=== PATIENT | male | born 1975 | race Two or more races ===

== ENCOUNTER 2017-10-06 20:00 | Emergency (ER) | payer BC ==
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
[2017-10-06] MEDS ORDERED: Iopamidol 755 Mg/ML 75 ML Bottle IV ONE (20:44)
[2017-10-06] MEDS ORDERED: Lactated Ringers 1,000 ML IV SCH (21:20)
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
== END 2017-10-06 21:55 ==
LOC: FB.ED 20:00
DX: S36.09XA Other injury of spleen, initial encounter (principal); S01.21XA Laceration without foreign body of nose, initial encounter; V29.9XXA Motorcycle rider (driver) (passenger) injured in unspecified traffic accident, initial encounter
CPT/HCPCS: 12011; 36415; 74177; 80048; 80305; 81001; 85025; 96360; 99285; J7120; Q9967

== ENCOUNTER 2017-10-13 12:48 | Inpatient (IN) | payer BC ==
[2017-10-13] MEDS ORDERED: Sodium Chloride 0.9% 1,000 ML IV SCH (13:00)
[2017-10-13] MEDS: Sodium Chloride 0.9% 1,000 ML IV SCH ×2 (13:03→14:04)
--- NOTE | 2017-10-13 13:15 | EDM.PDOC ---
ED HPI GENERAL MEDICAL PROBLEM - General Stated Complaint: STOMACH PAIN Time Seen by Provider: 10/13/17 13:11 Source of Information: Reports: Patient, EMS History Limitations: Reports: Other (pale, diaphoretic, weak. ) - History of Present Illness INITIAL COMMENTS - FREE TEXT/NARRATIVE: 42 y.o.w.m came by EMS due to severe abd. pain, pale and diaphoretic. As the ambulance arrived, his BP was 120/67. As the pt arrived here in the ED, he was pale, diaphoretic and in acute abd pain with distension of the abdomen-acute abdomen. BP was 70/54. 2 IVs were started and NS given wide open. Pt was seen by on 10/06/[address] due to [address]d. pain. CT abd showed an acute splenic rupture with active bleed. Pt was transferred to [facility] for immediate surgical consultation. As per patient, no surgical procedure was performed ayt that time. Pt was observed and sent home after a few days. Pt denied any trauma between 10/06/2017 and today. BP 70/56 Pulse 92 RR 18 Temp 36.7 Pulse ox 95% Onset Date: 10/11/17 Onset Time: 07:00 Duration: Day(s):, Getting Worse Location: Reports: Abdomen Quality: Reports: Dull, Pressure, Stabbing, Throbbing Severity: Severe Improves with: Reports: Rest Worsens with: Reports: Movement Context: Reports: Trauma Associated Symptoms: Reports: Diaphoresis, Weakness - Related Data Allergies Allergy/AdvReac Type Severity Reaction Status Date / Time No Known Allergies Allergy Verified 10/06/17 20:44 Home Meds: Home Meds NK [No Known Home Meds] 10/06/17 [History] Social & Family History - Family History Family Medical History: Noncontributory - Caffeine Use Caffeine Use: Reports: None ED ROS GENERAL - Review of Systems Review Of Systems: Unable To Obtain (due to excruciating abd. pain) ED EXAM, GI/ABD - Physical Exam Exam: See Below Exam Limited By: Other (abd. pain) General Appearance: Lethargic, Severe Distress Eyes: Bilateral: Normal Appearance Ears: Normal External Exam Nose: Normal Inspection Throat/Mouth: Normal Lips, Normal Voice, No Airway Compromise, Other (dry mucosal membrane) Head: Atraumatic, Normocephalic Neck: Normal Inspection, Supple, Non-Tender, Full Range of Motion Respiratory/Chest: No Respiratory Distress, Lungs Clear, Normal Breath Sounds, Chest Non-Tender Cardiovascular: Regular Rate, Rhythm, Other (low BP) GI/Abdominal Exam: Distended, Guarding, Rigid, Tender, Abnormal Bowel Sounds (Male) Exam: No Hernia Rectal (Males) Exam: Deferred Back Exam: Normal Inspection, Full Range of Motion Extremities: Normal Inspection, Normal Range of Motion, Non-Tender, No Pedal Edema, Slow Capillary Refill Neurological: Alert, Oriented, CN II-XII Intact, Other (unable to ambulate deu to ab.pain hypovolemic shock) Psychiatric: Anxious Skin Exam: Cool, Diaphoretic Lymphatic: No Adenopathy Course - Vital Signs Text/Narrative:: 42 y.o.w.m came by EMS due to severe abd. pain, pale and diaphoretic. As the ambulance arrived, his BP was 120/67. As the pt arrived here in the ED, he was pale, diaphoretic and in acute abd pain with distension of the abdomen-acute abdomen. BP was 70/54. 2 IVs were started and NS given wide open. Pt was seen by on 10/06/[address] due to abd. pain. CT abd showed an acute splenic rupture with active bleed. Pt was transferred to [facility] for immediate surgical consultation. As per patient, no surgical procedure was performed ayt that time. Pt was observed and sent home after a few days. Pt denied any trauma between 10/06/2017 and today. BP 70/56 Pulse 92 RR 18 Temp 36.7 Pulse ox 95% PE: Thin, pale diaphoretic male with abd. pain low BP, Ox3 Imaging:Splenic fracture with active bleed LabsL HGB 9.1 HCT 26.1 Lactic acid 3.7 Trop 0.017 WBC 18.1 13.11: 2 iv were started, NS was given wide open, BP improved, LABs in cluding T /S were ordered. 15: Pt went to Imaging Unit after Vitals improved. CT abd/pelvis showed fresh blood in his belly Consultation: Dr. Mckenzie, Surgeon: did not call back till , stating Dr. Whitt is taking calls for him till he, Dr. Purcell, is back in town 13.25: 2 units O neg blood was ordered verbally, 2 units of T/C were ordered later as well verbally, later in writing 13.30 Consultation: Drs. PIZANO/Jonathan, STEFANO/Intesivist/surgeon: Iv IV NS, hold off on O neg blood if possible, call life flight 13.40 Hispan wqs orederd, not given, however. 1st unit of O neg blood was started. 13.50 Consultation: Dr. Whitt, Surgeon: Will see the pt in the ed, decided to go to the OR for spenectomy 13.55 Consulting Radiolgy called back: Spleen Fracture with active bleed Plan: Splenectomy, Dr. Whitt, Surgeon, took the care over. BP was 85/56 as pt left the ER with NS and 2nd bad of O neg blood infusing, Nonrebreathers was applied, anesthesia was present. Family arrived and was informed about the Tx plan. Last Recorded V/S: Last Vital Signs Temp 35.8 C 10/13/17 18:00 Pulse 99 10/13/17 19:15 Resp 12 10/13/17 19:15 BP 122/82 10/13/17 19:15 Pulse Ox 100 10/13/17 19:15 - Orders/Labs/Meds Orders: Active Orders 24 hr Category Date Time Status Transfer Patient (Change bed) [ADT] Routine ADT 10/13/17 14:07 Ordered Abdomen Pelvis wo Cont [CT] Stat Exams 10/13/17 13:11 Taken FRESH FROZEN PLASMA [BBK] Routine Lab 10/13/17 14:37 Results PATIENT RETYPE [BBK] Stat Lab 10/13/17 13:02 Results PLATELETS APH [BBK] Routine Lab 10/13/17 14:37 Results RED BLOOD CELLS LP [BBK] Routine Lab 10/13/17 14:37 Results RED BLOOD CELLS LP [BBK] Stat Lab 10/13/17 13:02 Results TYPE AND SCREEN [BBK] Stat Lab 10/13/17 13:02 Results Sodium Chloride 0.9% [Normal Saline] 1,000 ml Med 10/13/17 13:30 Active IV .BOLUS Sodium Chloride 0.9% [Normal Saline] 1,000 ml Med 10/13/17 13:00 Active IV ASDIRECTED Sodium Chloride 0.9% [Normal Saline] 250 ml Med 10/13/17 13:30 Active IV ASDIRECTED Transfuse PRBC [Transfuse Red Blood Cells] [COMM] Stat Oth 10/13/17 13:18 Ordered Medication Orders Albuterol/Ipratropium (Duoneb 3.0-0.5 Mg/3 Ml) 3 ml NEB Q4H PRN PRN Reason: Shortness of Breath Hydromorphone HCl (Dilaudid) 1 mg IVPUSH Q2H PRN PRN Reason: Pain (moderate 4-6) Sodium Chloride (Normal Saline) 1,000 mls @ 125 mls/hr IV ASDIRECTED TWYLA Last Admin: 10/13/17 12:55 Dose: 125 mls/hr Sodium Chloride (Normal Saline) 1,000 mls @ 999 mls/hr IV .BOLUS TWYLA Last Admin: 10/13/17 13:03 Dose: 999 mls/hr Sodium Chloride (Normal Saline) 250 mls @ 100 mls/hr IV ASDIRECTED TWYLA Lactated Ringer's (Ringers, Lactated) 1,000 mls @ 125 mls/hr IV ASDIRECTED TWYLA Ondansetron HCl (Zofran) 4 mg IVPUSH Q6H PRN PRN Reason: Nausea/Vomiting Pantoprazole Sodium (Protonix Iv) 40 mg IVPUSH DAILY [facility] Last Admin: 10/13/17 18:34 Dose: 40 mg Labs: Laboratory Tests 10/13/17 10/13/17 10/13/17 Range/Units 13:02 13:02 13:02 WBC 18.1 H (4.5-12.0) X10-3/uL RBC 3.05 L (4.30-5.75) x10(6)uL Hgb 9.1 L D (11.5-15.5) g/dL Hct 26.5 L D (30.0-51.3) % MCV 87.1 (80-96) fL MCH 29.8 (27.7-33.6) pg MCHC 34.2 (32.2-35.4) g/dL RDW 12.4 (11.5-15.5) % Plt Count 231 (125-369) X10(3)uL MPV 8.8 (7.4-10.4) fL Add Manual Diff Yes Neutrophils % (Manual) 32 L (46-82) % Lymphocytes % (Manual) 58 H (13-37) % Monocytes % (Manual) 8 (4-12) % Eosinophils % (Manual) 2 (0-5) % PT 10.0 (8.7-11.1) INR 1.03 (0.89-1.13) Sodium 139 (135-145) mmol/L Potassium 3.6 (3.5-5.3) mmol/L Chloride 103 (100-110) mmol/L Carbon Dioxide 29 (21-32) mmol/L BUN 8 (7-18) mg/dL Creatinine 1.1 (0.70-1.30) mg/dL Est Cr Clr Drug Dosing TNP Estimated GFR (MDRD) > 60 (>60) BUN/Creatinine Ratio 7.3 L (9-20) Glucose 244 H D (80-116) mg/dL Lactic Acid (0.4-2.2) mmol/L Calcium 7.6 L (8.6-10.2) mg/dL Creatine Kinase 33 L (60-160) IU/L Troponin I (<0.017-0.056) ng/mL Blood Type Gel Antibody Screen Crossmatch 10/13/17 10/13/17 10/13/17 Range/Units 13:02 13:02 13:18 WBC (4.5-12.0) X10-3/uL RBC (4.30-5.75) x10(6)uL Hgb (11.5-15.5) g/dL Hct (30.0-51.3) % MCV (80-96) fL MCH (27.7-33.6) pg MCHC (32.2-35.4) g/dL RDW (11.5-15.5) % Plt Count (125-369) X10(3)uL MPV (7.4-10.4) fL Add Manual Diff Neutrophils % (Manual) (46-82) % Lymphocytes % (Manual) (13-37) % Monocytes % (Manual) (4-12) % Eosinophils % (Manual) (0-5) % PT (8.7-11.1) INR (0.89-1.13) Sodium (135-145) mmol/L Potassium (3.5-5.3) mmol/L Chloride (100-110) mmol/L Carbon Dioxide (21-32) mmol/L BUN (7-18) mg/dL Creatinine (0.70-1.30) mg/dL Est Cr Clr Drug Dosing Estimated GFR (MDRD) (>60) BUN/Creatinine Ratio (9-20) Glucose (80-116) mg/dL Lactic Acid 3.7 H (0.4-2.2) mmol/L Calcium (8.6-10.2) mg/dL Creatine Kinase (60-160) IU/L Troponin I < 0.017 L (<0.017-0.056) ng/mL Blood Type O POSITIVE Gel Antibody Screen Negative Crossmatch See Detail 10/13/17 10/13/17 Range/Units 14:37 15:30 WBC 21.8 H (4.5-12.0) X10-3/uL RBC 2.36 L (4.30-5.75) x10(6)uL Hgb 7.1 L (11.5-15.5) g/dL Hct 20.3 L* (30.0-51.3) % MCV 86.0 (80-96) fL MCH 30.0 (27.7-33.6) pg MCHC 34.9 (32.2-35.4) g/dL RDW 14.4 (11.5-15.5) % Plt Count 126 (125-369) X10(3)uL MPV 9.2 (7.4-10.4) fL Add Manual Diff Yes Neutrophils % (Manual) 88 H (46-82) % Lymphocytes % (Manual) 10 L (13-37) % Monocytes % (Manual) 2 L (4-12) % Eosinophils % (Manual) (0-5) % PT (8.7-11.1) INR (0.89-1.13) Sodium (135-145) mmol/L Potassium (3.5-5.3) mmol/L Chloride (100-110) mmol/L Carbon Dioxide (21-32) mmol/L BUN (7-18) mg/dL Creatinine (0.70-1.30) mg/dL Est Cr Clr Drug Dosing Estimated GFR (MDRD) (>60) BUN/Creatinine Ratio (9-20) Glucose (80-116) mg/dL Lactic Acid (0.4-2.2) mmol/L Calcium (8.6-10.2) mg/dL Creatine Kinase (60-160) IU/L Troponin I (<0.017-0.056) ng/mL Blood Type Gel Antibody Screen Crossmatch See Detail Meds: Medications Generic Name Dose Route Start Last Admin Trade Name Kendal PRN Reason Stop Dose Admin Albuterol/Ipratropium 3 ml 10/13/17 17:32 Duoneb 3.0-0.5 Mg/3 Ml NEB Q4H PRN Shortness of Breath Hydromorphone HCl 1 mg 10/13/17 16:29 Dilaudid IVPUSH Q2H PRN Pain (moderate 4-6) Sodium Chloride 1,000 mls @ 125 mls/hr 10/13/17 13:00 10/13/17 12:55 Normal Saline IV 125 mls/hr ASDIRECTED TWYLA Administration Sodium Chloride 1,000 mls @ 999 mls/hr 10/13/17 13:30 10/13/17 13:03 Normal Saline IV 999 mls/hr .BOLUS TWYLA Administration Sodium Chloride 250 mls @ 100 mls/hr 10/13/17 13:30 Normal Saline IV ASDIRECTED TWYLA Lactated Ringer's 1,000 mls @ 125 mls/hr 10/13/17 16:30 Ringers, Lactated IV ASDIRECTED TWYLA Ondansetron HCl 4 mg 10/13/17 16:29 Zofran IVPUSH Q6H PRN Nausea/Vomiting Pantoprazole Sodium 40 mg 10/13/17 16:45 10/13/17 18:34 Protonix Iv IVPUSH 40 mg DAILY TWYLA Administration Discontinued Medications Generic Name Dose Route Start Last Admin Trade Name Kendal PRN Reason Stop Dose Admin Fentanyl Confirm 10/13/17 13:32 10/13/17 19:08 Sublimaze Administered 10/13/17 13:33 Not Given Dose 100 mcg .ROUTE .STK-MED ONE Hetastarch/Sodium Chloride 500 mls @ 1,000 mls/hr 10/13/17 13:45 10/13/17 13: 37 Hetastarch 6% In Normal Saline IV 10/13/17 14:14 1,000 mls/hr STAT ONE Administration Departure - Departure Time of Disposition: 14:00 Disposition: Admitted As Inpatient 67 Condition: Fair Clinical Impression: Splenic rupture - Discharge Information - My Orders Last 24 Hours: My Active Orders 10/13/17 13:00 Sodium Chloride 0.9% [Normal Saline] 1,000 ml IV ASDIRECTED 10/13/17 13:02 PATIENT RETYPE [BBK] Stat RED BLOOD CELLS LP [BBK] Stat TYPE AND SCREEN [BBK] Stat 10/13/17 13:11 Abdomen Pelvis wo Cont [CT] Stat 10/13/17 13:18 Transfuse PRBC [Transfuse Red Blood Cells] [COMM] Stat 10/13/17 13:30 Sodium Chloride 0.9% [Normal Saline] 1,000 ml IV .BOLUS Sodium Chloride 0.9% [Normal Saline] 250 ml IV ASDIRECTED - Assessment/Plan Last 24 Hours: My Active Orders 10/13/17 13:00 Sodium Chloride 0.9% [Normal Saline] 1,000 ml IV ASDIRECTED 10/13/17 13:02 PATIENT RETYPE [BBK] Stat RED BLOOD CELLS LP [BBK] Stat TYPE AND SCREEN [BBK] Stat 10/13/17 13:11 Abdomen Pelvis wo Cont [CT] Stat 10/13/17 13:18 Transfuse PRBC [Transfuse Red Blood Cells] [COMM] Stat 10/13/17 13:30 Sodium Chloride 0.9% [Normal Saline] 1,000 ml IV .BOLUS Sodium Chloride 0.9% [Normal Saline] 250 ml IV ASDIRECTED
[2017-10-13] MEDS ORDERED: Hetastarch 6% in NS 500 ML Bag IV STA (13:28)
[2017-10-13] MEDS ORDERED: Sodium Chloride 0.9% 250 ML IV SCH (13:30)
[2017-10-13] MEDS ORDERED: fentaNYL 100 MCG/2 ML SDV ONE (13:32)
[2017-10-13] MEDS: fentaNYL 100 MCG/2 ML SDV IVPUSH PRN ×2 (13:33→13:35)
[2017-10-13] MEDS ORDERED: Hetastarch in NS 500 ML IV ONE (13:45)
[2017-10-13] MEDS ORDERED: Neostigmine Methylsulfate 10 MG/10 ML MDV IVPUSH ONE (14:30)
[2017-10-13] MEDS ORDERED: ePHEDrine 50 MG/ML SDV IV ONE (14:30)
[2017-10-13] MEDS ORDERED: Lactated Ringers 1,000 ML IV ONE (14:30)
[2017-10-13] MEDS ORDERED: Midazolam 1 MG/ML 2 ML SDV IV ONE (14:30)
[2017-10-13] MEDS ORDERED: HYDROmorphone 2 MG/ML SDV IV ONE (14:30)
[2017-10-13] MEDS ORDERED: fentaNYL 100 MCG/2 ML SDV IV ONE (14:30)
[2017-10-13] MEDS ORDERED: Propofol 200 MG/20 ML SDV IV ONE (14:30)
[2017-10-13] MEDS ORDERED: Ketamine 500 mg/10 ML MDV IV ONE (14:30)
[2017-10-13] MEDS ORDERED: Rocuronium 100 MG/10 ML MDV IV ONE (14:30)
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
[2017-10-13] MEDS ORDERED: Ondansetron 4 MG/2 ML SDV IVPUSH PRN (16:29)
--- NOTE | 2017-10-13 16:40 | PCM.OPNOTE ---
- General Post-Op/Procedure Note Date of Surgery/Procedure: 10/13/17 Operative Procedure(s): ex lap with splenectomy Findings: Stage III splenic laceration Pre Op Diagnosis: acute abdomen with splenic laceration Post-Op Diagnosis: Same Anesthesia Technique: General ET Tube Primary Surgeon: Eugenio Whitt Anesthesia Provider: Ambrose Causey Pathology: spleen EBL in mLs: 3,000 Complications: None Condition: Good Free Text/Narrative:: see dictation
[2017-10-13] MEDS ORDERED: Albuterol/Ipratropium 3.0-0.5 MG/3 ML Neb Soln NEB PRN (17:32)
[2017-10-13] MEDS: Sodium Chloride 0.9% 10 ML Syringe FLUSH PRN (18:00)
[2017-10-13] MEDS: Pantoprazole 40 MG Vial IVPUSH SCH (18:34)
[2017-10-13] MEDS: HYDROmorphone 2 MG/ML SDV IVPUSH PRN ×2 (19:46→21:47)
[2017-10-14] MEDS: HYDROmorphone 2 MG/ML SDV IVPUSH PRN ×7 (00:18→21:19)
[2017-10-14] MEDS: Lactated Ringers 1,000 ML IV SCH ×4 (01:12→17:34)
[2017-10-14] MEDS: Pantoprazole 40 MG Vial IVPUSH SCH (08:50)
[2017-10-14] MEDS ORDERED: LORazepam 2 MG/ML SDV IVPUSH PRN (09:02)
[2017-10-14] MEDS: Sodium Chloride 0.9% 10 ML Syringe FLUSH PRN ×2 (09:10→09:12)
--- NOTE | 2017-10-14 09:11 | PCM.SURGPN ---
- General Info Date of Service: 10/14/17 POD#: 1 Functional Status: Reports: Urinating, Incentive Spirometry - Review of Systems Gastrointestinal: Reports: Abdominal Pain. Denies: Flatus - Patient Data Vitals - Most Recent: Last Vital Signs Temp 37.3 C 10/14/17 08:00 Pulse 118 H 10/14/17 06:31 Resp 18 10/14/17 08:00 BP 120/72 10/14/17 08:00 Pulse Ox 99 10/14/17 08:00 Weight - Most Recent: 62.341 kg I&O - Last 24 Hours: Intake & Output 10/13/17 10/14/17 10/14/17 22:59 06:59 14:59 Intake Total 2346 1069 Output Total 446 380 Balance 8698 689 Lab Results Last 24 Hrs: Laboratory Results - last 24 hr 10/13/17 10/13/17 10/13/17 Range/Units 13:02 13:02 13:02 WBC 18.1 H (4.5-12.0) X10-3/uL RBC 3.05 L (4.30-5.75) x10(6)uL Hgb 9.1 L D (11.5-15.5) g/dL Hct 26.5 L D (30.0-51.3) % MCV 87.1 (80-96) fL MCH 29.8 (27.7-33.6) pg MCHC 34.2 (32.2-35.4) g/dL RDW 12.4 (11.5-15.5) % Plt Count 231 (125-369) X10(3)uL MPV 8.8 (7.4-10.4) fL Neut % (Auto) (46-82) % Lymph % (Auto) (13-37) % Arthur % (Auto) (4-12) % Eos % (Auto) (1.0-5.0) % Baso % (Auto) (0-2) % Neut # (Auto) (1.6-8.3) # Lymph # (Auto) (0.6-5.0) # Arthur # (Auto) (0.0-1.3) # Eos # (Auto) (0.0-0.8) # Baso # (Auto) (0.0-0.2) # Add Manual Diff Yes Neutrophils % (Manual) 32 L (46-82) % Band Neutrophils % (0-6) % Lymphocytes % (Manual) 58 H (13-37) % Monocytes % (Manual) 8 (4-12) % Eosinophils % (Manual) 2 (0-5) % PT 10.0 (8.7-11.1) INR 1.03 (0.89-1.13) Sodium 139 (135-145) mmol/L Potassium 3.6 (3.5-5.3) mmol/L Chloride 103 (100-110) mmol/L Carbon Dioxide 29 (21-32) mmol/L BUN 8 (7-18) mg/dL Creatinine 1.1 (0.70-1.30) mg/dL Est Cr Clr Drug Dosing TNP Estimated GFR (MDRD) > 60 (>60) BUN/Creatinine Ratio 7.3 L (9-20) Glucose 244 H D (80-116) mg/dL Lactic Acid (0.4-2.2) mmol/L Calcium 7.6 L (8.6-10.2) mg/dL Total Bilirubin (0.1-1.3) mg/dL AST (5-25) IU/L ALT (12-36) U/L Alkaline Phosphatase (56-112) IU/L Creatine Kinase 33 L (60-160) IU/L Troponin I (<0.017-0.056) ng/mL Total Protein (6.0-8.0) g/dL Albumin (3.5-5.2) g/dL Globulin g/dL Albumin/Globulin Ratio Blood Type Gel Antibody Screen Crossmatch 10/13/17 10/13/17 10/13/17 Range/Units 13:02 13:02 13:18 WBC (4.5-12.0) X10-3/uL RBC (4.30-5.75) x10(6)uL Hgb (11.5-15.5) g/dL Hct (30.0-51.3) % MCV (80-96) fL MCH (27.7-33.6) pg MCHC (32.2-35.4) g/dL RDW (11.5-15.5) % Plt Count (125-369) X10(3)uL MPV (7.4-10.4) fL Neut % (Auto) (46-82) % Lymph % (Auto) (13-37) % Arthur % (Auto) (4-12) % Eos % (Auto) (1.0-5.0) % Baso % (Auto) (0-2) % Neut # (Auto) (1.6-8.3) # Lymph # (Auto) (0.6-5.0) # Arthur # (Auto) (0.0-1.3) # Eos # (Auto) (0.0-0.8) # Baso # (Auto) (0.0-0.2) # Add Manual Diff Neutrophils % (Manual) (46-82) % Band Neutrophils % (0-6) % Lymphocytes % (Manual) (13-37) % Monocytes % (Manual) (4-12) % Eosinophils % (Manual) (0-5) % PT (8.7-11.1) INR (0.89-1.13) Sodium (135-145) mmol/L Potassium (3.5-5.3) mmol/L Chloride (100-110) mmol/L Carbon Dioxide (21-32) mmol/L BUN (7-18) mg/dL Creatinine (0.70-1.30) mg/dL Est Cr Clr Drug Dosing Estimated GFR (MDRD) (>60) BUN/Creatinine Ratio (9-20) Glucose (80-116) mg/dL Lactic Acid 3.7 H (0.4-2.2) mmol/L Calcium (8.6-10.2) mg/dL Total Bilirubin (0.1-1.3) mg/dL AST (5-25) IU/L ALT (12-36) U/L Alkaline Phosphatase (56-112) IU/L Creatine Kinase (60-160) IU/L Troponin I < 0.017 L (<0.017-0.056) ng/mL Total Protein (6.0-8.0) g/dL Albumin (3.5-5.2) g/dL Globulin g/dL Albumin/Globulin Ratio Blood Type O POSITIVE Gel Antibody Screen Negative Crossmatch See Detail 10/13/17 10/13/17 10/13/17 Range/Units 14:37 15:30 18:05 WBC 21.8 H 20.0 H (4.5-12.0) X10-3/uL RBC 2.36 L 2.85 L (4.30-5.75) x10(6)uL Hgb 7.1 L 8.2 L (11.5-15.5) g/dL Hct 20.3 L* 24.3 L (30.0-51.3) % MCV 86.0 85.3 (80-96) fL MCH 30.0 28.8 (27.7-33.6) pg MCHC 34.9 33.8 (32.2-35.4) g/dL RDW 14.4 14.0 (11.5-15.5) % Plt Count 126 298 (125-369) X10(3)uL MPV 9.2 8.0 (7.4-10.4) fL Neut % (Auto) 84.6 H (46-82) % Lymph % (Auto) 5.5 L (13-37) % Arthur % (Auto) 9.7 (4-12) % Eos % (Auto) 0 L (1.0-5.0) % Baso % (Auto) 0 (0-2) % Neut # (Auto) 17.0 H (1.6-8.3) # Lymph # (Auto) 1.1 (0.6-5.0) # Arthur # (Auto) 1.9 H (0.0-1.3) # Eos # (Auto) 0.0 (0.0-0.8) # Baso # (Auto) 0.0 (0.0-0.2) # Add Manual Diff Yes Neutrophils % (Manual) 88 H (46-82) % Band Neutrophils % (0-6) % Lymphocytes % (Manual) 10 L (13-37) % Monocytes % (Manual) 2 L (4-12) % Eosinophils % (Manual) (0-5) % PT (8.7-11.1) INR (0.89-1.13) Sodium (135-145) mmol/L Potassium (3.5-5.3) mmol/L Chloride (100-110) mmol/L Carbon Dioxide (21-32) mmol/L BUN (7-18) mg/dL Creatinine (0.70-1.30) mg/dL Est Cr Clr Drug Dosing Estimated GFR (MDRD) (>60) BUN/Creatinine Ratio (9-20) Glucose (80-116) mg/dL Lactic Acid (0.4-2.2) mmol/L Calcium (8.6-10.2) mg/dL Total Bilirubin (0.1-1.3) mg/dL AST (5-25) IU/L ALT (12-36) U/L Alkaline Phosphatase (56-112) IU/L Creatine Kinase (60-160) IU/L Troponin I (<0.017-0.056) ng/mL Total Protein (6.0-8.0) g/dL Albumin (3.5-5.2) g/dL Globulin g/dL Albumin/Globulin Ratio Blood Type Gel Antibody Screen Crossmatch See Detail 10/13/17 10/14/17 10/14/17 Range/Units 18:05 06:20 06:20 WBC 27.3 H (4.5-12.0) X10-3/uL RBC 3.17 L (4.30-5.75) x10(6)uL Hgb 9.3 L (11.5-15.5) g/dL Hct 27.5 L (30.0-51.3) % MCV 87.0 (80-96) fL MCH 29.4 (27.7-33.6) pg MCHC 33.8 (32.2-35.4) g/dL RDW 14.8 (11.5-15.5) % Plt Count 379 H (125-369) X10(3)uL MPV 8.2 (7.4-10.4) fL Neut % (Auto) (46-82) % Lymph % (Auto) (13-37) % Arthur % (Auto) (4-12) % Eos % (Auto) (1.0-5.0) % Baso % (Auto) (0-2) % Neut # (Auto) (1.6-8.3) # Lymph # (Auto) (0.6-5.0) # Arthur # (Auto) (0.0-1.3) # Eos # (Auto) (0.0-0.8) # Baso # (Auto) (0.0-0.2) # Add Manual Diff Yes Neutrophils % (Manual) 85 H (46-82) % Band Neutrophils % 1 (0-6) % Lymphocytes % (Manual) 7 L (13-37) % Monocytes % (Manual) 7 (4-12) % Eosinophils % (Manual) (0-5) % PT 10.4 (8.7-11.1) INR 1.07 (0.89-1.13) Sodium 142 (135-145) mmol/L Potassium 4.3 (3.5-5.3) mmol/L Chloride 108 D (100-110) mmol/L Carbon Dioxide 28 (21-32) mmol/L BUN 12 (7-18) mg/dL Creatinine 1.1 (0.70-1.30) mg/dL Est Cr Clr Drug Dosing 76.88 Estimated GFR (MDRD) > 60 (>60) BUN/Creatinine Ratio 10.9 (9-20) Glucose 130 H D (80-116) mg/dL Lactic Acid (0.4-2.2) mmol/L Calcium 7.1 L (8.6-10.2) mg/dL Total Bilirubin 1.1 (0.1-1.3) mg/dL AST 69 H (5-25) IU/L ALT 56 H D (12-36) U/L Alkaline Phosphatase 61 (56-112) IU/L Creatine Kinase (60-160) IU/L Troponin I (<0.017-0.056) ng/mL Total Protein 5.7 L (6.0-8.0) g/dL Albumin 2.4 L (3.5-5.2) g/dL Globulin 3.3 g/dL Albumin/Globulin Ratio 0.7 Blood Type Gel Antibody Screen Crossmatch Med Orders - Current: Current Medications Albuterol/Ipratropium (Duoneb 3.0-0.5 Mg/3 Ml) 3 ml NEB Q4H PRN PRN Reason: Shortness of Breath Fentanyl (Sublimaze) 50 mcg IVPUSH Q30M PRN PRN Reason: Pain Last Admin: 10/13/17 13:35 Dose: 50 mcg Hydromorphone HCl (Dilaudid) 1 mg IVPUSH Q2H PRN PRN Reason: Pain (moderate 4-6) Last Admin: 10/14/17 08:42 Dose: 1 mg Sodium Chloride (Normal Saline) 1,000 mls @ 125 mls/hr IV ASDIRECTED [facility] Last Admin: 10/13/17 12:55 Dose: 999 mls/hr Sodium Chloride (Normal Saline) 250 mls @ 100 mls/hr IV ASDIRECTED [facility] Lactated Ringer's (Ringers, Lactated) 1,000 mls @ 125 mls/hr IV ASDIRECTED [facility] Last Admin: 10/14/17 07:30 Dose: 125 mls/hr Acetaminophen 1,000 mg/ Premix 100 mls @ 400 mls/hr IV Q6H [facility] Stop: 10/15/17 09:01 Lorazepam (Ativan) 0.5 mg IVPUSH Q6H PRN PRN Reason: Anxiety Ondansetron HCl (Zofran) 4 mg IVPUSH Q6H PRN PRN Reason: Nausea/Vomiting Pantoprazole Sodium (Protonix Iv) 40 mg IVPUSH DAILY [facility] Last Admin: 10/14/17 08:50 Dose: 40 mg Sodium Chloride (Saline Flush) 10 ml FLUSH ASDIRECTED PRN PRN Reason: daily flush for saline locks Discontinued Medications Fentanyl (Sublimaze) Confirm Administered Dose 100 mcg .ROUTE .STK-MED ONE Stop: 10/13/17 13:33 Last Admin: 10/13/17 19:08 Dose: Not Given Sodium Chloride (Normal Saline) 1,000 mls @ 999 mls/hr IV .BOLUS [facility] Last Admin: 10/13/17 14:04 Dose: 999 mls/hr Hetastarch/Sodium Chloride (Hetastarch 6% In Normal Saline) 500 mls @ 1,000 mls /hr IV STAT ONE Stop: 10/13/17 14:14 Last Admin: 10/13/17 13:37 Dose: 1,000 mls/hr - Exam Wound/Incisions: Dressing Dry and Intact Quality Assessment: Urine Catheter, DVT Prophylaxis. No: Supplemental Oxygen General: Alert, Cooperative, No Acute Distress HEENT: Other (laceration on the nares of the nose ) Lungs: Clear to Auscultation, Normal Respiratory Effort Cardiovascular: Regular Rate, Regular Rhythm GI/Abdominal Exam: Normal Bowel Sounds, Tender (along incisionn ) Extremities: No Pedal Edema, Other (scd in place ) Skin: Warm, Dry, Intact - Problem List & Annotations (1) Traumatic rupture of spleen SNOMED Code(s): 27224254 Code(s): S36.09XA - OTHER INJURY OF SPLEEN, INITIAL ENCOUNTER Status: Acute Current Visit: No Qualifiers: Encounter type: sequela Qualified Code(s): S36.09XS - Other injury of spleen, sequela - Problem List Review Problem List Initiated/Reviewed/Updated: Yes - My Orders Last 24 Hours: Active Orders 24 hr Category Date Time Status Patient Status [ADT] Routine ADT 10/13/17 16:29 Active Transfer Patient (Change bed) [ADT] Routine ADT 10/13/17 14:07 Ordered Cardiac Monitoring [RC] 08,16,00 Care 10/13/17 16:29 Active Gastrointestinal Tube Mgmt [RC] 08,16,00 Care 10/13/17 16:29 Active Intake and Output [RC] 06,10,14,18,22,02 Care 10/13/17 16:31 Active Notify Provider Vital Signs [RC] PRN Care 10/13/17 16:32 Active Oxygen Therapy [RC] PRN Care 10/13/17 16:29 Active Pulse Oximetry [RC] CONTINUOUS Care 10/13/17 16:32 Active RT Aerosol Therapy [RC] .PRN Care 10/13/17 17:32 Active RT Incentive Spirometry [RC] Q2HWA Care 10/13/17 16:29 Active Vital Signs [RC] Q1HR Care 10/13/17 16:29 Active Respiratory Care Assess and Treatment [CONS] Urgent Cons 10/13/17 16:29 Active Nothing Per Oral Diet [DIET] Diet 10/13/17 Dinner Active Abdomen Pelvis wo Cont [CT] Stat Exams 10/13/17 13:11 Taken CXR [Chest 1V Frontal] [CR] Routine Exams 10/14/17 08:00 Taken FRESH FROZEN PLASMA [BBK] Routine Lab 10/13/17 14:37 Results PATIENT RETYPE [BBK] Stat Lab 10/13/17 13:02 Results PLATELETS APH [BBK] Routine Lab 10/13/17 14:37 Results RED BLOOD CELLS LP [BBK] Routine Lab 10/13/17 14:37 Results RED BLOOD CELLS LP [BBK] Stat Lab 10/13/17 13:02 Results TYPE AND SCREEN [BBK] Stat Lab 10/13/17 13:02 Results Acetaminophen [Ofirmev] 1,000 mg Med 10/14/17 09:00 Ordered Premix Bag 1 bag IV Q6H Albuterol/Ipratropium [DuoNeb 3.0-0.5 MG/3 ML] Med 10/13/17 17:32 Active 3 ml NEB Q4H PRN HYDROmorphone [Dilaudid] Med 10/13/17 16:29 Active 1 mg IVPUSH Q2H PRN LORazepam [Ativan] Med 10/14/17 09:02 Ordered 0.5 mg IVPUSH Q6H PRN Lactated Ringers [Ringers, Lactated] 1,000 ml Med 10/13/17 16:30 Active IV ASDIRECTED Ondansetron [Zofran] Med 10/13/17 16:29 Active 4 mg IVPUSH Q6H PRN Pantoprazole [ProTONIX IV] Med 10/13/17 16:45 Active 40 mg IVPUSH DAILY Sodium Chloride 0.9% [Normal Saline] 1,000 ml Med 10/13/17 13:00 Active IV ASDIRECTED Sodium Chloride 0.9% [Normal Saline] 250 ml Med 10/13/17 13:30 Active IV ASDIRECTED Sodium Chloride 0.9% [Saline Flush] Med 10/14/17 08:52 Active 10 ml FLUSH ASDIRECTED PRN fentaNYL [Sublimaze] Med 10/13/17 13:33 Active 50 mcg IVPUSH Q30M PRN SCD [Sequential Compression Device] [OM.PC] Routine Oth 10/13/17 17:32 Ordered Transfuse PRBC [Transfuse Red Blood Cells] [COMM] Stat Oth 10/13/17 13:18 Ordered Resuscitation Status Routine Resus Stat 10/13/17 16:29 Ordered Medication Orders Albuterol/Ipratropium (Duoneb 3.0-0.5 Mg/3 Ml) 3 ml NEB Q4H PRN PRN Reason: Shortness of Breath Fentanyl (Sublimaze) 50 mcg IVPUSH Q30M PRN PRN Reason: Pain Last Admin: 10/13/17 13:35 Dose: 50 mcg Admin: 10/13/17 13:33 Dose: 50 mcg Hydromorphone HCl (Dilaudid) 1 mg IVPUSH Q2H PRN PRN Reason: Pain (moderate 4-6) Last Admin: 10/14/17 08:42 Dose: 1 mg Admin: 10/14/17 06:13 Dose: 1 mg Admin: 10/14/17 03:26 Dose: 1 mg Admin: 10/14/17 00:18 Dose: 1 mg Admin: 10/13/17 21:47 Dose: 1 mg Admin: 10/13/17 19:46 Dose: 1 mg Sodium Chloride (Normal Saline) 1,000 mls @ 125 mls/hr IV ASDIRECTED [facility] Last Admin: 10/13/17 12:55 Dose: 999 mls/hr Sodium Chloride (Normal Saline) 250 mls @ 100 mls/hr IV ASDIRECTED [facility] Lactated Ringer's (Ringers, Lactated) 1,000 mls @ 125 mls/hr IV ASDIRECTED [facility] Last Admin: 10/14/17 07:30 Dose: 125 mls/hr Infusion: 10/14/17 07:30 Dose: 125 mls/hr Admin: 10/14/17 01:12 Dose: 125 mls/hr Acetaminophen 1,000 mg/ Premix 100 mls @ 400 mls/hr IV Q6H [facility] Stop: 10/15/17 09:01 Lorazepam (Ativan) 0.5 mg IVPUSH Q6H PRN PRN Reason: Anxiety Ondansetron HCl (Zofran) 4 mg IVPUSH Q6H PRN PRN Reason: Nausea/Vomiting Pantoprazole Sodium (Protonix Iv) 40 mg IVPUSH DAILY [facility] Last Admin: 10/14/17 08:50 Dose: 40 mg Admin: 10/13/17 18:34 Dose: 40 mg Sodium Chloride (Saline Flush) 10 ml FLUSH ASDIRECTED PRN PRN Reason: daily flush for saline locks - Assessment Assessment (Free Text/Narrative):: post op day #1 - Plan Plan (Free Text/Narrative):: will continue NGT and felder today. anticipate removal tomorrow. HGB if stable and is coming up no further need for transfusion. still with some tachycardia. this may have an anxiety as well as a stress component as well as some pain. I will add some ofrimev, and some low does ativan. continue current rx.
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
[2017-10-14] MEDS: Acetaminophen 1,000 MG in Premix Bag 1 BAG IV SCH ×3 (10:14→21:46)
[2017-10-15] MEDS: HYDROmorphone 2 MG/ML SDV IVPUSH PRN ×2 (01:41→05:54)
[2017-10-15] MEDS: Lactated Ringers 1,000 ML IV SCH (02:05)
[2017-10-15] MEDS: Acetaminophen 1,000 MG in Premix Bag 1 BAG IV SCH (03:30)
--- NOTE | 2017-10-15 07:17 | PCM.SURGPN ---
- General Info Date of Service: 10/15/17 POD#: 2 Functional Status: Reports: Ambulating, Urinating, Incentive Spirometry - Review of Systems Gastrointestinal: Denies: Flatus - Patient Data Vitals - Most Recent: Last Vital Signs Temp 37.1 C 10/15/17 06:00 Pulse 103 H 10/15/17 06:00 Resp 16 10/15/17 06:00 BP 119/77 10/15/17 06:00 Pulse Ox 93 L 10/15/17 06:00 Weight - Most Recent: 60.917 kg I&O - Last 24 Hours: Intake & Output 10/14/17 10/15/17 10/15/17 22:59 06:59 14:59 Intake Total 1230 1025 Output Total 850 600 Balance 380 425 Lab Results Last 24 Hrs: Laboratory Results - last 24 hr 10/15/17 10/15/17 Range/Units 06:15 06:15 WBC 26.9 H (4.5-12.0) X10-3/uL RBC 2.58 L (4.30-5.75) x10(6)uL Hgb 7.6 L (11.5-15.5) g/dL Hct 22.6 L (30.0-51.3) % MCV 87.4 (80-96) fL MCH 29.3 (27.7-33.6) pg MCHC 33.6 (32.2-35.4) g/dL RDW 14.0 (11.5-15.5) % Plt Count 403 H (125-369) X10(3)uL MPV 8.5 (7.4-10.4) fL Add Manual Diff Yes Neutrophils % (Manual) 80 (46-82) % Lymphocytes % (Manual) 16 (13-37) % Monocytes % (Manual) 3 L (4-12) % Eosinophils % (Manual) 1 (0-5) % Sodium 139 (135-145) mmol/L Potassium 3.7 (3.5-5.3) mmol/L Chloride 106 (100-110) mmol/L Carbon Dioxide 31 (21-32) mmol/L BUN 12 (7-18) mg/dL Creatinine 0.9 (0.70-1.30) mg/dL Est Cr Clr Drug Dosing 93.07 mL/min Estimated GFR (MDRD) > 60 (>60) BUN/Creatinine Ratio 13.3 (9-20) Glucose 107 (80-116) mg/dL Calcium 7.3 L (8.6-10.2) mg/dL Total Bilirubin 1.4 H (0.1-1.3) mg/dL AST 43 H D (5-25) IU/L ALT 46 H D (12-36) U/L Alkaline Phosphatase 60 (56-112) IU/L Total Protein 5.1 L (6.0-8.0) g/dL Albumin 1.9 L (3.5-5.2) g/dL Globulin 3.2 g/dL Albumin/Globulin Ratio 0.6 Amylase 107 (25-115) U/L Med Orders - Current: Current Medications Albuterol/Ipratropium (Duoneb 3.0-0.5 Mg/3 Ml) 3 ml NEB Q4H PRN PRN Reason: Shortness of Breath Fentanyl (Sublimaze) 50 mcg IVPUSH Q30M PRN PRN Reason: Pain Last Admin: 10/13/17 13:35 Dose: 50 mcg Hydromorphone HCl (Dilaudid) 1 mg IVPUSH Q2H PRN PRN Reason: Pain (moderate 4-6) Last Admin: 10/15/17 05:54 Dose: 1 mg Sodium Chloride (Normal Saline) 1,000 mls @ 125 mls/hr IV ASDIRECTED [facility] Last Admin: 10/13/17 12:55 Dose: 999 mls/hr Sodium Chloride (Normal Saline) 250 mls @ 100 mls/hr IV ASDIRECTED [facility] Lactated Ringer's (Ringers, Lactated) 1,000 mls @ 125 mls/hr IV ASDIRECTED [facility] Last Admin: 10/15/17 02:05 Dose: 125 mls/hr Acetaminophen 1,000 mg/ Premix 100 mls @ 400 mls/hr IV Q6H [facility] Stop: 10/15/17 09:01 Last Admin: 10/15/17 03:30 Dose: 400 mls/hr Lorazepam (Ativan) 0.5 mg IVPUSH Q6H PRN PRN Reason: Anxiety Ondansetron HCl (Zofran) 4 mg IVPUSH Q6H PRN PRN Reason: Nausea/Vomiting Pantoprazole Sodium (Protonix Iv) 40 mg IVPUSH DAILY [facility] Last Admin: 10/14/17 08:50 Dose: 40 mg Sodium Chloride (Saline Flush) 10 ml FLUSH ASDIRECTED PRN PRN Reason: daily flush for saline locks Last Admin: 10/14/17 09:12 Dose: 10 ml Discontinued Medications Fentanyl (Sublimaze) Confirm Administered Dose 100 mcg .ROUTE .STK-MED ONE Stop: 10/13/17 13:33 Last Admin: 10/13/17 19:08 Dose: Not Given Sodium Chloride (Normal Saline) 1,000 mls @ 999 mls/hr IV .BOLUS [facility] Last Admin: 10/13/17 14:04 Dose: 999 mls/hr Hetastarch/Sodium Chloride (Hetastarch 6% In Normal Saline) 500 mls @ 1,000 mls /hr IV STAT ONE Stop: 10/13/17 14:14 Last Admin: 10/13/17 13:37 Dose: 1,000 mls/hr - Exam Wound/Incisions: Dressing Dry and Intact General: Alert, Cooperative, No Acute Distress Lungs: Clear to Auscultation, Normal Respiratory Effort Cardiovascular: Regular Rate, Tachycardia GI/Abdominal Exam: Abnormal Bowel Sounds (hypotensive ) - Problem List & Annotations (1) Traumatic rupture of spleen SNOMED Code(s): 74977697 Code(s): S36.09XA - OTHER INJURY OF SPLEEN, INITIAL ENCOUNTER Status: Acute Current Visit: No Qualifiers: Encounter type: sequela Qualified Code(s): S36.09XS - Other injury of spleen, sequela - Problem List Review Problem List Initiated/Reviewed/Updated: Yes - My Orders Last 24 Hours: Active Orders 24 hr Category Date Time Status Up With Assistance [RC] ASDIRECTED Care 10/14/17 09:14 Active Up to Chair [RC] ASDIRECTED Care 10/14/17 09:14 Active CXR [Chest 1V Frontal] [CR] Routine Exams 10/14/17 08:00 Taken Acetaminophen [Ofirmev] 1,000 mg Med 10/14/17 09:00 Active Premix Bag 1 bag IV Q6H LORazepam [Ativan] Med 10/14/17 09:02 Active 0.5 mg IVPUSH Q6H PRN Sodium Chloride 0.9% [Saline Flush] Med 10/14/17 08:52 Active 10 ml FLUSH ASDIRECTED PRN Medication Orders Albuterol/Ipratropium (Duoneb 3.0-0.5 Mg/3 Ml) 3 ml NEB Q4H PRN PRN Reason: Shortness of Breath Fentanyl (Sublimaze) 50 mcg IVPUSH Q30M PRN PRN Reason: Pain Last Admin: 10/13/17 13:35 Dose: 50 mcg Admin: 10/13/17 13:33 Dose: 50 mcg Hydromorphone HCl (Dilaudid) 1 mg IVPUSH Q2H PRN PRN Reason: Pain (moderate 4-6) Last Admin: 10/15/17 05:54 Dose: 1 mg Admin: 10/15/17 01:41 Dose: 1 mg Admin: 10/14/17 21:19 Dose: 1 mg Admin: 10/14/17 19:11 Dose: 1 mg Admin: 10/14/17 13:09 Dose: 1 mg Admin: 10/14/17 08:42 Dose: 1 mg Admin: 10/14/17 06:13 Dose: 1 mg Admin: 10/14/17 03:26 Dose: 1 mg Admin: 10/14/17 00:18 Dose: 1 mg Admin: 10/13/17 21:47 Dose: 1 mg Admin: 10/13/17 19:46 Dose: 1 mg Sodium Chloride (Normal Saline) 1,000 mls @ 125 mls/hr IV ASDIRECTED [facility] Last Admin: 10/13/17 12:55 Dose: 999 mls/hr Sodium Chloride (Normal Saline) 250 mls @ 100 mls/hr IV ASDIRECTED [facility] Lactated Ringer's (Ringers, Lactated) 1,000 mls @ 125 mls/hr IV ASDIRECTED [facility] Last Admin: 10/15/17 02:05 Dose: 125 mls/hr Infusion: 10/15/17 01:34 Dose: 125 mls/hr Admin: 10/14/17 17:34 Dose: 125 mls/hr Infusion: 10/14/17 17:10 Dose: 125 mls/hr Admin: 10/14/17 09:10 Dose: 125 mls/hr Infusion: 10/14/17 09:10 Dose: 125 mls/hr Admin: 10/14/17 07:30 Dose: 125 mls/hr Infusion: 10/14/17 07:30 Dose: 125 mls/hr Admin: 10/14/17 01:12 Dose: 125 mls/hr Acetaminophen 1,000 mg/ Premix 100 mls @ 400 mls/hr IV Q6H [facility] Stop: 10/15/17 09:01 Last Admin: 10/15/17 03:30 Dose: 400 mls/hr Infusion: 10/14/17 22:01 Dose: 400 mls/hr Admin: 10/14/17 21:46 Dose: 400 mls/hr Infusion: 10/14/17 16:17 Dose: 400 mls/hr Admin: 10/14/17 16:02 Dose: 400 mls/hr Infusion: 10/14/17 10:29 Dose: 400 mls/hr Admin: 10/14/17 10:14 Dose: 400 mls/hr Lorazepam (Ativan) 0.5 mg IVPUSH Q6H PRN PRN Reason: Anxiety Ondansetron HCl (Zofran) 4 mg IVPUSH Q6H PRN PRN Reason: Nausea/Vomiting Pantoprazole Sodium (Protonix Iv) 40 mg IVPUSH DAILY [facility] Last Admin: 10/14/17 08:50 Dose: 40 mg Admin: 10/13/17 18:34 Dose: 40 mg Sodium Chloride (Saline Flush) 10 ml FLUSH ASDIRECTED PRN PRN Reason: daily flush for saline locks Last Admin: 10/14/17 09:12 Dose: 10 ml Admin: 10/14/17 09:10 Dose: 10 ml Admin: 10/13/17 18:00 Dose: 10 ml - Assessment Assessment (Free Text/Narrative):: elevated WBC noted no evidence of infection - Plan Plan (Free Text/Narrative):: D/C meerita D/C ARIE
[2017-10-15] MEDS ORDERED: HYDROmorphone/Normal Saline 15 MG/30 ML PCA IV SCH (07:30)
[2017-10-15] MEDS ORDERED: D5 1/2 NS w/ 20 mEq/L KCl 1,000 ML IV SCH (07:30)
[2017-10-15] MEDS: HYDROmorphone/Normal Saline 6 MG/30 ML PCA Vial IV SCH ×2 (09:04→23:41)
[2017-10-15] MEDS: D5 1/2 NS w/ 20 mEq/L KCl 1,000 ML IV SCH ×2 (10:41→18:14)
[2017-10-15] MEDS: Sodium Chloride 0.9% 10 ML Syringe FLUSH PRN (10:56)
[2017-10-15] MEDS: Pantoprazole 40 MG Vial IVPUSH SCH (10:56)
--- NOTE | 2017-10-15 12:38 | PCM.SN ---
- Free Text/Narrative Note: LATE ENTRY: On 10/13/17 Neostigmine 2mg IV given in PACU at 1507.
--- NOTE | 2017-10-15 13:38 | CR ---
INDICATION: Splenectomy. CHEST, SINGLE VIEW: FINDINGS: NG tube is present. The tip terminates in mid esophagus, and the side hole is in the proximal esophagus. Recommend advancing into the stomach, as well as correlation with current functioning. A small left-sided pleural effusion with some adjacent air space opacity. Right lung clear. IMPRESSION: 1. NG tube tip terminates mid esophagus, recommend advancing. 2. Small left pleural effusion with adjacent air space opacity. MTDD
[2017-10-16] MEDS ORDERED: Acetaminophen 650 MG Supp RECTAL ONE (01:54)
[2017-10-16] MEDS: D5 1/2 NS w/ 20 mEq/L KCl 1,000 ML IV SCH ×2 (02:41→11:02)
[2017-10-16] MEDS ORDERED: Bisacodyl 10 MG Supp RECTAL ONE (07:21)
--- NOTE | 2017-10-16 07:21 | PCM.SURGPN ---
- General Info Date of Service: 10/16/17 POD#: 3 Functional Status: Reports: Pain Controlled, Ambulating, Urinating, Incentive Spirometry - Review of Systems General: Reports: Fever (temp spike last pm ) Pulmonary: Reports: No Symptoms Cardiovascular: Reports: No Symptoms Gastrointestinal: Reports: Abdominal Pain. Denies: Flatus - Patient Data Vitals - Most Recent: Last Vital Signs Temp 37.2 C 10/16/17 04:00 Pulse 109 H 10/16/17 04:00 Resp 16 10/16/17 04:00 BP 125/72 10/16/17 04:00 Pulse Ox 99 10/16/17 04:00 Weight - Most Recent: 60.872 kg I&O - Last 24 Hours: Intake & Output 10/15/17 10/16/17 10/16/17 22:59 06:59 14:59 Intake Total 1058 1010 Output Total 875 700 Balance 183 310 Lab Results Last 24 Hrs: Laboratory Results - last 24 hr 10/13/17 Range/Units 14:37 Crossmatch See Detail Med Orders - Current: Current Medications Albuterol/Ipratropium (Duoneb 3.0-0.5 Mg/3 Ml) 3 ml NEB Q4H PRN PRN Reason: Shortness of Breath Hydromorphone HCl (Dilaudid [employer] 6 Mg In Ns 30 Ml) 6 mg IV ASDIRECTED [facility]; Protocol Last Admin: 10/15/17 23:41 Dose: 6 mg Potassium Chloride/Dextrose/Sod Cl (D5 1/2 Ns W/ 20 Meq/L Kcl) 1,000 mls @ 125 mls/hr IV Q8H [facility] Last Admin: 10/16/17 02:41 Dose: 125 mls/hr Lorazepam (Ativan) 0.5 mg IVPUSH Q6H PRN PRN Reason: Anxiety Ondansetron HCl (Zofran) 4 mg IVPUSH Q6H PRN PRN Reason: Nausea/Vomiting Pantoprazole Sodium (Protonix Iv) 40 mg IVPUSH DAILY [facility] Last Admin: 10/15/17 10:56 Dose: 40 mg Sodium Chloride (Saline Flush) 10 ml FLUSH ASDIRECTED PRN PRN Reason: daily flush for saline locks Last Admin: 10/15/17 10:56 Dose: 10 ml Discontinued Medications Acetaminophen (Tylenol) 650 mg RECTAL NOW ONE Stop: 10/16/17 01:55 Last Admin: 10/16/17 02:20 Dose: 650 mg Fentanyl (Sublimaze) Confirm Administered Dose 100 mcg .ROUTE .STK-MED ONE Stop: 10/13/17 13:33 Last Admin: 10/13/17 19:08 Dose: Not Given Fentanyl (Sublimaze) 50 mcg IVPUSH Q30M PRN PRN Reason: Pain Last Admin: 10/13/17 13:35 Dose: 50 mcg Hydromorphone HCl (Dilaudid) 1 mg IVPUSH Q2H PRN PRN Reason: Pain (moderate 4-6) Last Admin: 10/15/17 05:54 Dose: 1 mg Hydromorphone HCl (Dilaudid [employer] 15 Mg In Ns 30 Ml) 15 mg IV ASDIRECTED [facility]; Protocol Sodium Chloride (Normal Saline) 1,000 mls @ 125 mls/hr IV ASDIRECTED [facility] Last Admin: 10/13/17 12:55 Dose: 999 mls/hr Sodium Chloride (Normal Saline) 1,000 mls @ 999 mls/hr IV .BOLUS [facility] Last Admin: 10/13/17 14:04 Dose: 999 mls/hr Sodium Chloride (Normal Saline) 250 mls @ 100 mls/hr IV ASDIRECTED [facility] Hetastarch/Sodium Chloride (Hetastarch 6% In Normal Saline) 500 mls @ 1,000 mls /hr IV STAT ONE Stop: 10/13/17 14:14 Last Admin: 10/13/17 13:37 Dose: 1,000 mls/hr Lactated Ringer's (Ringers, Lactated) 1,000 mls @ 125 mls/hr IV ASDIRECTED [facility] Last Admin: 10/15/17 02:05 Dose: 125 mls/hr Acetaminophen 1,000 mg/ Premix 100 mls @ 400 mls/hr IV Q6H [facility] Stop: 10/15/17 09:01 Last Admin: 10/15/17 03:30 Dose: 400 mls/hr Potassium Chloride/Dextrose/Sod Cl (D5 1/2 Ns W/ 20 Meq/L Kcl) 1,000 mls @ 125 mls/hr IV ASDIRECTED [facility] - Exam Wound/Incisions: Dressing Dry and Intact General: Alert, Oriented, Cooperative, No Acute Distress Lungs: Clear to Auscultation, Decreased Breath Sounds (left side ) Cardiovascular: Regular Rate, Regular Rhythm GI/Abdominal Exam: Normal Bowel Sounds, No Abnormal Bruit, No Mass - Problem List & Annotations (1) Traumatic rupture of spleen SNOMED Code(s): 72401989 Code(s): S36.09XA - OTHER INJURY OF SPLEEN, INITIAL ENCOUNTER Status: Acute Current Visit: No Qualifiers: Encounter type: sequela Qualified Code(s): S36.09XS - Other injury of spleen, sequela - Problem List Review Problem List Initiated/Reviewed/Updated: Yes - My Orders Last 24 Hours: Active Orders 24 hr Category Date Time Status Transfer Patient (Change bed) [ADT] Routine ADT 10/15/17 10:45 Ordered Ambulate [RC] 04,08,12,16,20,00 Care 10/15/17 07:19 Active D5 1/2 NS w/ 20 mEq/L KCl 1,000 ml Med 10/15/17 10:45 Active IV Q8H HYDROmorphone/Normal Saline [Dilaudid [employer] 6 MG in NS 30 Med 10/15/17 08:45 Active ML] 6 mg IV ASDIRECTED NG [Nasogastric Orogastric Tube Removal] [OM.PC] Oth 10/15/17 07:17 Ordered Routine Medication Orders Albuterol/Ipratropium (Duoneb 3.0-0.5 Mg/3 Ml) 3 ml NEB Q4H PRN PRN Reason: Shortness of Breath Hydromorphone HCl (Dilaudid [employer] 6 Mg In Ns 30 Ml) 6 mg IV ASDIRECTED [facility]; Protocol Last Admin: 10/15/17 23:41 Dose: 6 mg Admin: 10/15/17 09:04 Dose: 6 mg Potassium Chloride/Dextrose/Sod Cl (D5 1/2 Ns W/ 20 Meq/L Kcl) 1,000 mls @ 125 mls/hr IV Q8H [facility] Last Admin: 10/16/17 02:41 Dose: 125 mls/hr Infusion: 10/16/17 02:14 Dose: 125 mls/hr Admin: 10/15/17 18:14 Dose: 125 mls/hr Infusion: 10/15/17 18:14 Dose: 125 mls/hr Admin: 10/15/17 10:41 Dose: 125 mls/hr Lorazepam (Ativan) 0.5 mg IVPUSH Q6H PRN PRN Reason: Anxiety Ondansetron HCl (Zofran) 4 mg IVPUSH Q6H PRN PRN Reason: Nausea/Vomiting Pantoprazole Sodium (Protonix Iv) 40 mg IVPUSH DAILY [facility] Last Admin: 10/15/17 10:56 Dose: 40 mg Admin: 10/14/17 08:50 Dose: 40 mg Admin: 10/13/17 18:34 Dose: 40 mg Sodium Chloride (Saline Flush) 10 ml FLUSH ASDIRECTED PRN PRN Reason: daily flush for saline locks Last Admin: 10/15/17 10:56 Dose: 10 ml Admin: 10/14/17 09:12 Dose: 10 ml Admin: 10/14/17 09:10 Dose: 10 ml Admin: 10/13/17 18:00 Dose: 10 ml - Assessment Assessment (Free Text/Narrative):: stable exam decreased breath sounds not unexpected due to splenectomy - Plan Plan (Free Text/Narrative):: suppository continue current rx
[2017-10-16] MEDS: Pantoprazole 40 MG Vial IVPUSH SCH (08:24)
[2017-10-16] MEDS ORDERED: Bacitracin/Neomycin/Polymyxin B Oint 28.4 GM Tube TOP SCH (11:15)
[2017-10-16] MEDS ORDERED: ceFAZolin 1 GM in Sodium Chloride 0.9% 50 ML IV SCH (12:00)
[2017-10-16] MEDS: ceFAZolin 1,000 MG VIAL IV SCH ×2 (12:06→20:16)
[2017-10-16] MEDS: Bacitracin/Neomycin/Polymyxin B Oint 28.4 GM Tube TOP SCH ×2 (12:11→20:16)
[2017-10-16] MEDS: HYDROmorphone/Normal Saline 6 MG/30 ML PCA Vial IV SCH (16:06)
[2017-10-16] MEDS ORDERED: Acetaminophen 325 MG Tab PO PRN (20:06)
[2017-10-17] MEDS: D5 1/2 NS w/ 20 mEq/L KCl 1,000 ML IV SCH ×2 (02:54→15:57)
[2017-10-17] MEDS: ceFAZolin 1,000 MG VIAL IV SCH ×3 (03:31→19:52)
[2017-10-17] MEDS ORDERED: Ketorolac 30 MG/ML SDV IVPUSH PRN (08:24)
--- NOTE | 2017-10-17 08:33 | PCM.SURGPN ---
- General Info Date of Service: 10/17/17 POD#: 4 Functional Status: Reports: Tolerating Diet, Ambulating - Review of Systems General: Reports: Fever Pulmonary: Reports: No Symptoms Cardiovascular: Reports: No Symptoms Gastrointestinal: Reports: Abdominal Pain, Flatus - Patient Data Vitals - Most Recent: Last Vital Signs Temp 36.8 C 10/17/17 03:58 Pulse 88 10/17/17 03:58 Resp 18 10/17/17 03:58 BP 111/76 10/17/17 03:58 Pulse Ox 96 10/17/17 03:58 Weight - Most Recent: 59.647 kg I&O - Last 24 Hours: Intake & Output 10/16/17 10/17/17 10/17/17 22:59 06:59 14:59 Intake Total 770 524 Output Total 900 2125 Balance -130 -1601 Lab Results Last 24 Hrs: Laboratory Results - last 24 hr 10/13/17 10/17/17 10/17/17 Range/Units 13:02 06:20 06:20 WBC 22.6 H (4.5-12.0) X10-3/uL Corrected WBC 22.2 H (4.5-12.0) X10(3) RBC 2.63 L (4.30-5.75) x10(6)uL Hgb 7.6 L (11.5-15.5) g/dL Hct 22.6 L (30.0-51.3) % MCV 85.9 (80-96) fL MCH 29.0 (27.7-33.6) pg MCHC 33.8 (32.2-35.4) g/dL RDW 13.7 (11.5-15.5) % Plt Count 631 H (125-369) X10(3)uL MPV 8.1 (7.4-10.4) fL Add Manual Diff Yes Neutrophils % (Manual) 68 (46-82) % Lymphocytes % (Manual) 19 (13-37) % Monocytes % (Manual) 11 (4-12) % Eosinophils % (Manual) 2 (0-5) % Nucleated RBCs 2 H (0-0) /100WBC Sodium 136 (135-145) mmol/L Potassium 3.7 (3.5-5.3) mmol/L Chloride 100 D (100-110) mmol/L Carbon Dioxide 30 (21-32) mmol/L BUN 7 (7-18) mg/dL Creatinine 0.8 (0.70-1.30) mg/dL Est Cr Clr Drug Dosing 102.52 mL/min Estimated GFR (MDRD) > 60 (>60) BUN/Creatinine Ratio 8.8 L (9-20) Glucose 125 H (80-116) mg/dL Calcium 7.6 L (8.6-10.2) mg/dL Crossmatch See Detail Med Orders - Current: Current Medications Acetaminophen (Tylenol) 650 mg PO Q4H PRN PRN Reason: Fever Last Admin: 10/16/17 23:24 Dose: 650 mg Hydrocodone Bitart/Acetaminophen ([place] 325-10 Mg) 1 tab PO Q4H PRN PRN Reason: Pain Albuterol/Ipratropium (Duoneb 3.0-0.5 Mg/3 Ml) 3 ml NEB Q4H PRN PRN Reason: Shortness of Breath Last Admin: 10/16/17 13:49 Dose: 3 ml Cefazolin Sodium (Ancef) 1,000 mg IV Q8H [facility] Last Admin: 10/17/17 03:31 Dose: 1,000 mg Ketorolac Tromethamine (Toradol) 30 mg IVPUSH Q6H PRN PRN Reason: Pain Stop: 10/22/17 08:24 Lorazepam (Ativan) 0.5 mg IVPUSH Q6H PRN PRN Reason: Anxiety Neomycin/Polymyxin/Bacitracin (Triple Antibiotic Oint) 1 gm TOP BID [facility] Last Admin: 10/16/17 20:16 Dose: 1 applic Ondansetron HCl (Zofran) 4 mg IVPUSH Q6H PRN PRN Reason: Nausea/Vomiting Pantoprazole Sodium (Protonix Iv) 40 mg IVPUSH DAILY [facility] Last Admin: 10/16/17 08:24 Dose: 40 mg Sodium Chloride (Saline Flush) 10 ml FLUSH ASDIRECTED PRN PRN Reason: daily flush for saline locks Last Admin: 10/15/17 10:56 Dose: 10 ml Discontinued Medications Acetaminophen (Tylenol) 650 mg RECTAL NOW ONE Stop: 10/16/17 01:55 Last Admin: 10/16/17 02:20 Dose: 650 mg Bisacodyl (Dulcolax) 10 mg RECTAL ONETIME ONE Stop: 10/16/17 07:22 Last Admin: 10/16/17 08:24 Dose: 10 mg Fentanyl (Sublimaze) Confirm Administered Dose 100 mcg .ROUTE .STK-MED ONE Stop: 10/13/17 13:33 Last Admin: 10/13/17 19:08 Dose: Not Given Fentanyl (Sublimaze) 50 mcg IVPUSH Q30M PRN PRN Reason: Pain Last Admin: 10/13/17 13:35 Dose: 50 mcg Hydromorphone HCl (Dilaudid) 1 mg IVPUSH Q2H PRN PRN Reason: Pain (moderate 4-6) Last Admin: 10/15/17 05:54 Dose: 1 mg Hydromorphone HCl (Dilaudid Import Dispatcher 15 Mg In Ns 30 Ml) 15 mg IV ASDIRECTED [facility]; Protocol Hydromorphone HCl (Dilaudid Import Dispatcher 6 Mg In Ns 30 Ml) 6 mg IV ASDIRECTED [facility]; Protocol Last Admin: 10/16/17 16:06 Dose: 6 mg Sodium Chloride (Normal Saline) 1,000 mls @ 125 mls/hr IV ASDIRECTED [facility] Last Admin: 10/13/17 12:55 Dose: 999 mls/hr Sodium Chloride (Normal Saline) 1,000 mls @ 999 mls/hr IV .BOLUS [facility] Last Admin: 10/13/17 14:04 Dose: 999 mls/hr Sodium Chloride (Normal Saline) 250 mls @ 100 mls/hr IV ASDIRECTED [facility] Hetastarch/Sodium Chloride (Hetastarch 6% In Normal Saline) 500 mls @ 1,000 mls /hr IV STAT ONE Stop: 10/13/17 14:14 Last Admin: 10/13/17 13:37 Dose: 1,000 mls/hr Lactated Ringer's (Ringers, Lactated) 1,000 mls @ 125 mls/hr IV ASDIRECTED [facility] Last Admin: 10/15/17 02:05 Dose: 125 mls/hr Acetaminophen 1,000 mg/ Premix 100 mls @ 400 mls/hr IV Q6H [facility] Stop: 10/15/17 09:01 Last Admin: 10/15/17 03:30 Dose: 400 mls/hr Potassium Chloride/Dextrose/Sod Cl (D5 1/2 Ns W/ 20 Meq/L Kcl) 1,000 mls @ 125 mls/hr IV ASDIRECTED [facility] Potassium Chloride/Dextrose/Sod Cl (D5 1/2 Ns W/ 20 Meq/L Kcl) 1,000 mls @ 50 mls/hr IV Q8H [facility] Last Admin: 10/17/17 02:54 Dose: 50 mls/hr Neomycin/Polymyxin/Bacitracin (Triple Antibiotic Oint) 1 gm TOP BID [facility] Last Admin: 10/16/17 12:11 Dose: Not Given - Exam Wound/Incisions: Dressing Dry and Intact Lungs: Clear to Auscultation, Decreased Breath Sounds (lll field ) Cardiovascular: Regular Rate, Regular Rhythm GI/Abdominal Exam: Normal Bowel Sounds Skin: Warm, Dry, Intact - Problem List & Annotations (1) Traumatic rupture of spleen SNOMED Code(s): 66229527 Code(s): S36.09XA - OTHER INJURY OF SPLEEN, INITIAL ENCOUNTER Status: Acute Current Visit: No Qualifiers: Encounter type: sequela Qualified Code(s): S36.09XS - Other injury of spleen, sequela - Problem List Review Problem List Initiated/Reviewed/Updated: Yes - My Orders Last 24 Hours: Active Orders 24 hr Category Date Time Status Clear Liquid Diet [DIET] Diet 10/16/17 Dinner Active CXR [Chest 2V] [CR] Routine Exams 10/17/17 08:23 Ordered UA W/MICROSCOPIC [URIN] Routine Lab 10/17/17 08:23 Ordered Acetaminophen [Tylenol] Med 10/16/17 20:06 Active 650 mg PO Q4H PRN Acetaminophen/HYDROcodone [[place] 325-10 MG] Med 10/17/17 08:24 Ordered 1 tab PO Q4H PRN Bacitracin/Neomycin/Polymyxin [Triple Antibiotic Oint] Med 10/16/17 11:34 Active 1 gm TOP BID Ketorolac [Toradol] Med 10/17/17 08:24 Ordered 30 mg IVPUSH Q6H PRN ceFAZolin [Ancef] Med 10/16/17 12:00 Active 1,000 mg IV Q8H Convert IV to Saline Lock [OM.PC] Routine Oth 10/17/17 08:23 Ordered Medication Orders Acetaminophen (Tylenol) 650 mg PO Q4H PRN PRN Reason: Fever Last Admin: 10/16/17 23:24 Dose: 650 mg Hydrocodone Bitart/Acetaminophen ([place] 325-10 Mg) 1 tab PO Q4H PRN PRN Reason: Pain Albuterol/Ipratropium (Duoneb 3.0-0.5 Mg/3 Ml) 3 ml NEB Q4H PRN PRN Reason: Shortness of Breath Last Admin: 10/16/17 13:49 Dose: 3 ml Cefazolin Sodium (Ancef) 1,000 mg IV Q8H [facility] Last Admin: 10/17/17 03:31 Dose: 1,000 mg Admin: 10/16/17 20:16 Dose: 1,000 mg Admin: 10/16/17 12:06 Dose: 1,000 mg Ketorolac Tromethamine (Toradol) 30 mg IVPUSH Q6H PRN PRN Reason: Pain Stop: 10/22/17 08:24 Lorazepam (Ativan) 0.5 mg IVPUSH Q6H PRN PRN Reason: Anxiety Neomycin/Polymyxin/Bacitracin (Triple Antibiotic Oint) 1 gm TOP BID [facility] Last Admin: 10/16/17 20:16 Dose: 1 applic Admin: 10/16/17 12:11 Dose: 1 applic Ondansetron HCl (Zofran) 4 mg IVPUSH Q6H PRN PRN Reason: Nausea/Vomiting Pantoprazole Sodium (Protonix Iv) 40 mg IVPUSH DAILY [facility] Last Admin: 10/16/17 08:24 Dose: 40 mg Admin: 10/15/17 10:56 Dose: 40 mg Admin: 10/14/17 08:50 Dose: 40 mg Admin: 10/13/17 18:34 Dose: 40 mg Sodium Chloride (Saline Flush) 10 ml FLUSH ASDIRECTED PRN PRN Reason: daily flush for saline locks Last Admin: 10/15/17 10:56 Dose: 10 ml Admin: 10/14/17 09:12 Dose: 10 ml Admin: 10/14/17 09:10 Dose: 10 ml Admin: 10/13/17 18:00 Dose: 10 ml - Assessment Assessment (Free Text/Narrative):: no obvious source of fever will get cxr UA - Plan Plan (Free Text/Narrative):: nebs to scheduled. saline lock iv
[2017-10-17] MEDS: Pantoprazole 40 MG Vial IVPUSH SCH (09:56)
[2017-10-17] MEDS: Albuterol/Ipratropium 3.0-0.5 MG/3 ML Neb Soln NEB SCH ×4 (09:57→20:17)
[2017-10-17] MEDS: Bacitracin/Neomycin/Polymyxin B Oint 28.4 GM Tube TOP SCH ×2 (09:57→22:54)
[2017-10-17] MEDS: Sodium Chloride 0.9% 10 ML Syringe FLUSH PRN ×3 (10:33→19:53)
--- NOTE | 2017-10-17 10:46 | PCM.SN ---
- Free Text/Narrative Note: CXR demonstrates continued effusion on the left. will continue pulmonary toilet as well as nebs which have been changed to a scheduled approach.
[2017-10-17] MEDS ORDERED: Bisacodyl 10 MG Supp RECTAL ONE (15:36)
[2017-10-17] MEDS: Acetaminophen/HYDROcodone 325-10 MG Tab PO PRN (16:02)
[2017-10-17] MEDS: Metoclopramide 10 MG Tab PO SCH (17:31)
[2017-10-18] MEDS: Albuterol/Ipratropium 3.0-0.5 MG/3 ML Neb Soln NEB SCH ×3 (00:38→08:31)
[2017-10-18] MEDS: ceFAZolin 1,000 MG VIAL IV SCH (04:08)
[2017-10-18] MEDS: Sodium Chloride 0.9% 10 ML Syringe FLUSH PRN ×2 (04:08→08:25)
[2017-10-18] MEDS: Acetaminophen/HYDROcodone 325-10 MG Tab PO PRN (04:57)
[2017-10-18] MEDS: Pantoprazole 40 MG Vial IVPUSH SCH (08:26)
[2017-10-18] MEDS: Bacitracin/Neomycin/Polymyxin B Oint 28.4 GM Tube TOP SCH (08:30)
[2017-10-18] MEDS: Metoclopramide 10 MG Tab PO SCH ×2 (08:35→11:58)
--- NOTE | 2017-10-18 09:20 | PCM.SURGPN ---
- General Info Date of Service: 10/18/17 POD#: 5 Functional Status: Reports: Pain Controlled, Tolerating Diet, Ambulating, Incentive Spirometry - Patient Data Vitals - Most Recent: Last Vital Signs Temp 37.7 C 10/18/17 04:00 Pulse 112 H 10/18/17 09:03 Resp 18 10/18/17 04:00 BP 124/77 10/18/17 04:00 Pulse Ox 97 10/18/17 09:03 Weight - Most Recent: 59.647 kg I&O - Last 24 Hours: Intake & Output 10/17/17 10/18/17 10/18/17 22:59 06:59 14:59 Intake Total 400 300 Output Total 200 500 Balance 200 -200 Lab Results Last 24 Hrs: Laboratory Results - last 24 hr 10/17/17 Range/Units 09:50 Urine Color Yellow (YELLOW) Urine Appearance Clear (CLEAR) Urine pH 7.0 H (5.0-6.5) Ur Specific [place] 1.010 (1.010-1.025) Urine Protein Negative (NEGATIVE) mg/dL Urine Glucose (UA) Normal (NEGATIVE) mg/dL Urine Ketones Negative (NEGATIVE) mg/dL Urine Occult Blood Negative (NEGATIVE) Urine Nitrite Negative (NEGATIVE) Urine Bilirubin Small H (NEGATIVE) Urine Urobilinogen 4 H (NEGATIVE) mg/dL Ur Leukocyte Esterase Negative (NEGATIVE) Urine RBC 0-5 (0) Urine WBC 0-5 (0) Ur Squamous Epith Cells Rare (NS,R,O) Urine Bacteria Rare H (NS) Urine Mucus Few H (NS) Med Orders - Current: Current Medications Acetaminophen (Tylenol) 650 mg PO Q4H PRN PRN Reason: Fever Last Admin: 10/16/17 23:24 Dose: 650 mg Hydrocodone Bitart/Acetaminophen ([place] 325-10 Mg) 1 tab PO Q4H PRN PRN Reason: Pain Last Admin: 10/18/17 04:57 Dose: 1 tab Albuterol/Ipratropium (Duoneb 3.0-0.5 Mg/3 Ml) 3 ml NEB Q4H [facility] Last Admin: 10/18/17 08:31 Dose: 3 ml Cefazolin Sodium (Ancef) 1,000 mg IV Q8H [facility] Last Admin: 10/18/17 04:08 Dose: 1,000 mg Ketorolac Tromethamine (Toradol) 30 mg IVPUSH Q6H PRN PRN Reason: Pain Stop: 10/22/17 08:24 Last Admin: 10/17/17 10:30 Dose: 30 mg Lorazepam (Ativan) 0.5 mg IVPUSH Q6H PRN PRN Reason: Anxiety Metoclopramide HCl (Reglan) 10 mg PO TIDAC [facility] Last Admin: 10/18/17 08:35 Dose: 10 mg Neomycin/Polymyxin/Bacitracin (Triple Antibiotic Oint) 1 gm TOP BID [facility] Last Admin: 10/18/17 08:30 Dose: 1 applic Ondansetron HCl (Zofran) 4 mg IVPUSH Q6H PRN PRN Reason: Nausea/Vomiting Pantoprazole Sodium (Protonix Iv) 40 mg IVPUSH DAILY [facility] Last Admin: 10/18/17 08:26 Dose: 40 mg Sodium Chloride (Saline Flush) 10 ml FLUSH ASDIRECTED PRN PRN Reason: daily flush for saline locks Last Admin: 10/18/17 08:25 Dose: 10 ml Discontinued Medications Acetaminophen (Tylenol) 650 mg RECTAL NOW ONE Stop: 10/16/17 01:55 Last Admin: 10/16/17 02:20 Dose: 650 mg Albuterol/Ipratropium (Duoneb 3.0-0.5 Mg/3 Ml) 3 ml NEB Q4H PRN PRN Reason: Shortness of Breath Last Admin: 10/16/17 13:49 Dose: 3 ml Bisacodyl (Dulcolax) 10 mg RECTAL ONETIME ONE Stop: 10/16/17 07:22 Last Admin: 10/16/17 08:24 Dose: 10 mg Bisacodyl (Dulcolax) 10 mg RECTAL ONETIME ONE Stop: 10/17/17 15:37 Last Admin: 10/17/17 15:56 Dose: 10 mg Fentanyl (Sublimaze) Confirm Administered Dose 100 mcg .ROUTE .STK-MED ONE Stop: 10/13/17 13:33 Last Admin: 10/13/17 19:08 Dose: Not Given Fentanyl (Sublimaze) 50 mcg IVPUSH Q30M PRN PRN Reason: Pain Last Admin: 10/13/17 13:35 Dose: 50 mcg Hydromorphone HCl (Dilaudid) 1 mg IVPUSH Q2H PRN PRN Reason: Pain (moderate 4-6) Last Admin: 10/15/17 05:54 Dose: 1 mg Hydromorphone HCl (Dilaudid Java Engineer 15 Mg In Ns 30 Ml) 15 mg IV ASDIRECTED [facility]; Protocol Hydromorphone HCl (Dilaudid Java Engineer 6 Mg In Ns 30 Ml) 6 mg IV ASDIRECTED [facility]; Protocol Last Admin: 10/16/17 16:06 Dose: 6 mg Sodium Chloride (Normal Saline) 1,000 mls @ 125 mls/hr IV ASDIRECTED [facility] Last Admin: 10/13/17 12:55 Dose: 999 mls/hr Sodium Chloride (Normal Saline) 1,000 mls @ 999 mls/hr IV .BOLUS [facility] Last Admin: 10/13/17 14:04 Dose: 999 mls/hr Sodium Chloride (Normal Saline) 250 mls @ 100 mls/hr IV ASDIRECTED [facility] Hetastarch/Sodium Chloride ([place] 6% In Normal Saline) 500 mls @ 1,000 mls /hr IV STAT ONE Stop: 10/13/17 14:14 Last Admin: 10/13/17 13:37 Dose: 1,000 mls/hr Lactated Ringer's (Ringers, Lactated) 1,000 mls @ 125 mls/hr IV ASDIRECTED [facility] Last Admin: 10/15/17 02:05 Dose: 125 mls/hr Acetaminophen 1,000 mg/ Premix 100 mls @ 400 mls/hr IV Q6H [facility] Stop: 10/15/17 09:01 Last Admin: 10/15/17 03:30 Dose: 400 mls/hr Potassium Chloride/Dextrose/Sod Cl (D5 1/2 Ns W/ 20 Meq/L Kcl) 1,000 mls @ 125 mls/hr IV ASDIRECTED [facility] Potassium Chloride/Dextrose/Sod Cl (D5 1/2 Ns W/ 20 Meq/L Kcl) 1,000 mls @ 50 mls/hr IV Q8H [facility] Last Admin: 10/17/17 15:57 Dose: Not Given Neomycin/Polymyxin/Bacitracin (Triple Antibiotic Oint) 1 gm TOP BID [facility] Last Admin: 10/16/17 12:11 Dose: Not Given - Exam Wound/Incisions: Healing Well Lungs: Clear to Auscultation, Normal Respiratory Effort Cardiovascular: Regular Rate, Regular Rhythm GI/Abdominal Exam: Normal Bowel Sounds, Soft, Non-Tender Skin: Warm, Dry, Intact - Problem List & Annotations (1) Traumatic rupture of spleen SNOMED Code(s): 63430539 Code(s): S36.09XA - OTHER INJURY OF SPLEEN, INITIAL ENCOUNTER Status: Acute Current Visit: No Qualifiers: Encounter type: sequela Qualified Code(s): S36.09XS - Other injury of spleen, sequela - Problem List Review Problem List Initiated/Reviewed/Updated: Yes - My Orders Last 24 Hours: Active Orders 24 hr Category Date Time Status Regular Diet [DIET] Diet 10/17/17 Lunch Active CXR [Chest 2V] [CR] Routine Exams 10/17/17 08:23 Taken UA W/MICROSCOPIC [URIN] Routine Lab 10/17/17 09:50 Ordered Acetaminophen/HYDROcodone [[place] 325-10 MG] Med 10/17/17 08:24 Active 1 tab PO Q4H PRN Albuterol/Ipratropium [DuoNeb 3.0-0.5 MG/3 ML] Med 10/17/17 09:00 Active 3 ml NEB Q4H Ketorolac [Toradol] Med 10/17/17 08:24 Active 30 mg IVPUSH Q6H PRN Metoclopramide [Reglan] Med 10/17/17 17:30 Active 10 mg PO TIDAC Convert IV to Saline Lock [OM.PC] Routine Oth 10/17/17 08:23 Ordered Medication Orders Acetaminophen (Tylenol) 650 mg PO Q4H PRN PRN Reason: Fever Last Admin: 10/16/17 23:24 Dose: 650 mg Hydrocodone Bitart/Acetaminophen ([place] 325-10 Mg) 1 tab PO Q4H PRN PRN Reason: Pain Last Admin: 10/18/17 04:57 Dose: 1 tab Admin: 10/17/17 16:02 Dose: 1 tab Albuterol/Ipratropium (Duoneb 3.0-0.5 Mg/3 Ml) 3 ml NEB Q4H [facility] Last Admin: 10/18/17 08:31 Dose: 3 ml Admin: 10/18/17 04:53 Dose: 3 ml Admin: 10/18/17 00:38 Dose: 3 ml Admin: 10/17/17 20:17 Dose: 3 ml Admin: 10/17/17 17:31 Dose: 3 ml Admin: 10/17/17 12:46 Dose: 3 ml Admin: 10/17/17 09:57 Dose: 3 ml Cefazolin Sodium (Ancef) 1,000 mg IV Q8H [facility] Last Admin: 10/18/17 04:08 Dose: 1,000 mg Admin: 10/17/17 19:52 Dose: 1,000 mg Admin: 10/17/17 12:46 Dose: 1,000 mg Admin: 10/17/17 03:31 Dose: 1,000 mg Admin: 10/16/17 20:16 Dose: 1,000 mg Admin: 10/16/17 12:06 Dose: 1,000 mg Ketorolac Tromethamine (Toradol) 30 mg IVPUSH Q6H PRN PRN Reason: Pain Stop: 10/22/17 08:24 Last Admin: 10/17/17 10:30 Dose: 30 mg Lorazepam (Ativan) 0.5 mg IVPUSH Q6H PRN PRN Reason: Anxiety Metoclopramide HCl (Reglan) 10 mg PO TIDAC [facility] Last Admin: 10/18/17 08:35 Dose: 10 mg Admin: 10/17/17 17:31 Dose: 10 mg Neomycin/Polymyxin/Bacitracin (Triple Antibiotic Oint) 1 gm TOP BID [facility] Last Admin: 10/18/17 08:30 Dose: 1 applic Admin: 10/17/17 22:54 Dose: 1 applic Admin: 10/17/17 09:57 Dose: 1 applic Admin: 10/16/17 20:16 Dose: 1 applic Admin: 10/16/17 12:11 Dose: 1 applic Ondansetron HCl (Zofran) 4 mg IVPUSH Q6H PRN PRN Reason: Nausea/Vomiting Pantoprazole Sodium (Protonix Iv) 40 mg IVPUSH DAILY [facility] Last Admin: 10/18/17 08:26 Dose: 40 mg Admin: 10/17/17 09:56 Dose: 40 mg Admin: 10/16/17 08:24 Dose: 40 mg Admin: 10/15/17 10:56 Dose: 40 mg Admin: 10/14/17 08:50 Dose: 40 mg Admin: 10/13/17 18:34 Dose: 40 mg Sodium Chloride (Saline Flush) 10 ml FLUSH ASDIRECTED PRN PRN Reason: daily flush for saline locks Last Admin: 10/18/17 08:25 Dose: 10 ml Admin: 10/18/17 04:08 Dose: 10 ml Admin: 10/17/17 19:53 Dose: 10 ml Admin: 10/17/17 12:51 Dose: 10 ml Admin: 10/17/17 10:33 Dose: 10 ml Admin: 10/15/17 10:56 Dose: 10 ml Admin: 10/14/17 09:12 Dose: 10 ml Admin: 10/14/17 09:10 Dose: 10 ml Admin: 10/13/17 18:00 Dose: 10 ml - Assessment Assessment (Free Text/Narrative):: ready for discharge - Plan Plan (Free Text/Narrative):: see d/c plan
--- NOTE | 2017-10-18 09:35 | PCM.DCSUM1 ---
Discharge Summary - Hospital Course Free Text/Narrative:: Pt taken urgently to the OR with hypotension and bleeding spleen. Required transfusion of PRBC, platelets and FFP. Post operative course is unremarkable. NGT and Chambers removed on Day 2 Transferred to the floor. With return of bowel function started on a diet this was advanced. Has had some low grade fevers. thought to be due to atelectasis and a small stable effusion. Appears to be controlled with IS, and Tylenol. - Discharge Data Discharge Date: 10/18/17 Discharge Disposition: Home, Self-Care 01 Condition: Serious - Discharge Diagnosis/Problem(s) (1) Traumatic rupture of spleen SNOMED Code(s): 04074140 ICD Code: S36.09XA - OTHER INJURY OF SPLEEN, INITIAL ENCOUNTER Status: Acute Current Visit: No Qualifiers: Encounter type: sequela Qualified Code(s): S36.09XS - Other injury of spleen, sequela - Patient Summary/Data Operative Procedure(s) Performed: ex lap with splenectomy Consults: Consultations 10/13/17 16:29 Respiratory Care Assess and Treatment [CONS] Urgent Comment: Physician Instructions: - Patient Instructions Diet: Usual Diet as Tolerated, No Alcoholic Beverages Activity: No Lifting Over 25 Pounds, No Strenuous Activities, Rest and Relax Today Driving: Do Not Drive Showering/Bathing: May Shower Notify Provider of: Fever, Increased Pain, Swelling and Redness - Discharge Plan Prescriptions/Med Rec: Acetaminophen/HYDROcodone [[place] 325-5 MG] 1 - 2 tab PO Q6H PRN #30 tab PRN Reason: Pain Docusate Sodium [Colace] 100 mg PO BID #20 capsule Ferrous Gluconate [Iron] 236 mg PO BID #60 tablet Ibuprofen 600 mg PO Q6H #28 tablet Home Medications: Home Meds Acetaminophen/HYDROcodone [[place] 325-5 MG] 1 - 2 tab PO Q6H PRN #30 tab [Rx] Docusate Sodium [Colace] 100 mg PO BID #20 capsule 10/18/17 [Rx] Ferrous Gluconate [Iron] 236 mg PO BID #60 tablet 10/18/17 [Rx] Ibuprofen 600 mg PO Q6H #28 tablet 10/18/17 [Rx] Referrals: Eugenio Whitt MD [Physician] - 10/23/17 (staple ) - Discharge Summary/Plan Comment DC Time >30 min.: Yes - Patient Data Vitals - Most Recent: Last Vital Signs Temp 37.7 C 10/18/17 04:00 Pulse 112 H 10/18/17 09:03 Resp 18 10/18/17 04:00 BP 124/77 10/18/17 04:00 Pulse Ox 97 10/18/17 09:03 Weight - Most Recent: 59.647 kg I&O - Last 24 hours: Intake & Output 10/17/17 10/18/17 10/18/17 22:59 06:59 14:59 Intake Total 400 300 Output Total 200 500 Balance 200 -200 Lab Results - Last 24 hrs: Laboratory Results - last 24 hr 10/17/17 Range/Units 09:50 Urine Color Yellow (YELLOW) Urine Appearance Clear (CLEAR) Urine pH 7.0 H (5.0-6.5) Ur Specific [place] 1.010 (1.010-1.025) Urine Protein Negative (NEGATIVE) mg/dL Urine Glucose (UA) Normal (NEGATIVE) mg/dL Urine Ketones Negative (NEGATIVE) mg/dL Urine Occult Blood Negative (NEGATIVE) Urine Nitrite Negative (NEGATIVE) Urine Bilirubin Small H (NEGATIVE) Urine Urobilinogen 4 H (NEGATIVE) mg/dL Ur Leukocyte Esterase Negative (NEGATIVE) Urine RBC 0-5 (0) Urine WBC 0-5 (0) Ur Squamous Epith Cells Rare (NS,R,O) Urine Bacteria Rare H (NS) Urine Mucus Few H (NS) Med Orders - Current: Current Medications Acetaminophen (Tylenol) 650 mg PO Q4H PRN PRN Reason: Fever Last Admin: 10/16/17 23:24 Dose: 650 mg Hydrocodone Bitart/Acetaminophen ([place] 325-10 Mg) 1 tab PO Q4H PRN PRN Reason: Pain Last Admin: 10/18/17 04:57 Dose: 1 tab Albuterol/Ipratropium (Duoneb 3.0-0.5 Mg/3 Ml) 3 ml NEB Q4H [facility] Last Admin: 10/18/17 08:31 Dose: 3 ml Cefazolin Sodium (Ancef) 1,000 mg IV Q8H [facility] Last Admin: 10/18/17 04:08 Dose: 1,000 mg Ketorolac Tromethamine (Toradol) 30 mg IVPUSH Q6H PRN PRN Reason: Pain Stop: 10/22/17 08:24 Last Admin: 10/17/17 10:30 Dose: 30 mg Lorazepam (Ativan) 0.5 mg IVPUSH Q6H PRN PRN Reason: Anxiety Metoclopramide HCl (Reglan) 10 mg PO TIDAC [facility] Last Admin: 10/18/17 08:35 Dose: 10 mg Neomycin/Polymyxin/Bacitracin (Triple Antibiotic Oint) 1 gm TOP BID [facility] Last Admin: 10/18/17 08:30 Dose: 1 applic Ondansetron HCl (Zofran) 4 mg IVPUSH Q6H PRN PRN Reason: Nausea/Vomiting Pantoprazole Sodium (Protonix Iv) 40 mg IVPUSH DAILY [facility] Last Admin: 10/18/17 08:26 Dose: 40 mg Sodium Chloride (Saline Flush) 10 ml FLUSH ASDIRECTED PRN PRN Reason: daily flush for saline locks Last Admin: 10/18/17 08:25 Dose: 10 ml Discontinued Medications Acetaminophen (Tylenol) 650 mg RECTAL NOW ONE Stop: 10/16/17 01:55 Last Admin: 10/16/17 02:20 Dose: 650 mg Albuterol/Ipratropium (Duoneb 3.0-0.5 Mg/3 Ml) 3 ml NEB Q4H PRN PRN Reason: Shortness of Breath Last Admin: 10/16/17 13:49 Dose: 3 ml Bisacodyl (Dulcolax) 10 mg RECTAL ONETIME ONE Stop: 10/16/17 07:22 Last Admin: 10/16/17 08:24 Dose: 10 mg Bisacodyl (Dulcolax) 10 mg RECTAL ONETIME ONE Stop: 10/17/17 15:37 Last Admin: 10/17/17 15:56 Dose: 10 mg Fentanyl (Sublimaze) Confirm Administered Dose 100 mcg .ROUTE .STK-MED ONE Stop: 10/13/17 13:33 Last Admin: 10/13/17 19:08 Dose: Not Given Fentanyl (Sublimaze) 50 mcg IVPUSH Q30M PRN PRN Reason: Pain Last Admin: 10/13/17 13:35 Dose: 50 mcg Hydromorphone HCl (Dilaudid) 1 mg IVPUSH Q2H PRN PRN Reason: Pain (moderate 4-6) Last Admin: 10/15/17 05:54 Dose: 1 mg Hydromorphone HCl (Dilaudid [employer] 15 Mg In Ns 30 Ml) 15 mg IV ASDIRECTED TWYLA; Protocol Hydromorphone HCl (Dilaudid [employer]st 6 Mg In Ns 30 Ml) 6 mg IV ASDIRECTED TWYLA; Protocol Last Admin: 10/16/17 16:06 Dose: 6 mg Sodium Chloride (Normal Saline) 1,000 mls @ 125 mls/hr IV ASDIRECTED TWYLA Last Admin: 10/13/17 12:55 Dose: 999 mls/hr Sodium Chloride (Normal Saline) 1,000 mls @ 999 mls/hr IV .BOLUS TWYLA Last Admin: 10/13/17 14:04 Dose: 999 mls/hr Sodium Chloride (Normal Saline) 250 mls @ 100 mls/hr IV ASDIRECTED TWYLA Hetastarch/Sodium Chloride (Hetastarch 6% In Normal Saline) 500 mls @ 1,000 mls /hr IV STAT ONE Stop: 10/13/17 14:14 Last Admin: 10/13/17 13:37 Dose: 1,000 mls/hr Lactated Ringer's (Ringers, Lactated) 1,000 mls @ 125 mls/hr IV ASDIRECTED TWYLA Last Admin: 10/15/17 02:05 Dose: 125 mls/hr Acetaminophen 1,000 mg/ Premix 100 mls @ 400 mls/hr IV Q6H TWYLA Stop: 10/15/17 09:01 Last Admin: 10/15/17 03:30 Dose: 400 mls/hr Potassium Chloride/Dextrose/Sod Cl (D5 1/2 Ns W/ 20 Meq/L Kcl) 1,000 mls @ 125 mls/hr IV ASDIRECTED TWYLA Potassium Chloride/Dextrose/Sod Cl (D5 1/2 Ns W/ 20 Meq/L Kcl) 1,000 mls @ 50 mls/hr IV Q8H TWYLA Last Admin: 10/17/17 15:57 Dose: Not Given Neomycin/Polymyxin/Bacitracin (Triple Antibiotic Oint) 1 gm TOP BID TWYLA Last Admin: 10/16/17 12:11 Dose: Not Given
--- NOTE | 2017-10-19 13:47 | CR ---
INDICATION: Fevers. CHEST: PA and lateral views of the chest were obtained and revealed bibasilar pleural parenchymal changes, minimal on the right, with much more extensive findings on the left. Findings may be on the basis of pneumonia and pleuritis and appear increased, compared with 10/14/2017 examination. The heart did not appear grossly enlarged. The aorta is slightly tortuous with minimal calcification suggested in the arch. Bony structures appear to be grossly intact. IMPRESSION: Bibasilar pleural parenchymal changes, much more prominent on the left than on the right and increased on the left compared with the previous examination, likely representing pneumonia and pleuritis. MTDD
== END 2017-10-18 11:41 | disposition home or self-care (01) | DRG 850 ==
LOC: FB.ED 12:48 → FB.SDS 14:07 → FB.ICU 16:29 → UNDOADMIN 16:35 → FB.MS 10-15 11:52
PROVIDERS: ADMIT Surgery; ATTEND Surgery
PROC: 30233L1 Transfusion of Nonautologous Fresh Plasma into Peripheral Vein, Percutaneous Approach (ICD-10-PCS; 2017-10-13)
PROC: 30233N1 Transfusion of Nonautologous Red Blood Cells into Peripheral Vein, Percutaneous Approach (ICD-10-PCS; 2017-10-13)
PROC: 30233R1 Transfusion of Nonautologous Platelets into Peripheral Vein, Percutaneous Approach (ICD-10-PCS; 2017-10-13)
PROC: 30233K1 Transfusion of Nonautologous Frozen Plasma into Peripheral Vein, Percutaneous Approach (ICD-10-PCS; 2017-10-13)
PROC: 07TP0ZZ Resection of Spleen, Open Approach (ICD-10-PCS; principal; 2017-10-14)
PROC: 0FQ00ZZ Repair Liver, Open Approach (ICD-10-PCS; 2017-10-14)
DX: S36.09XD Other injury of spleen, subsequent encounter (principal); V19.9XXD Pedal cyclist (driver) (passenger) injured in unspecified traffic accident, subsequent encounter; I95.9 Hypotension, unspecified; S36.113A Laceration of liver, unspecified degree, initial encounter; Y92.234 Operating room of hospital as the place of occurrence of the external cause; J90 Pleural effusion, not elsewhere classified; J98.11 Atelectasis; R50.9 Fever, unspecified
CPT/HCPCS: 36415; 36430; 71045; 71046; 74176; 80048; 80053; 81001; 82150; 82550; 83605; 84484; 85025; 85610; 86850; 86900; 86901; 86920; 86922; 94150; 94640; 96360; 96361; 96374; 99291; 99292; A9270-GY; C9113; J0131; J0690; J1170; J1885; J2250; J2704; J2710; J3010; J3480; J7030; J7050; J7120; J7620; P9016; P9017; P9034

== ENCOUNTER 2017-10-23 16:21 | Inpatient (IN) | payer BC ==
[2017-10-23] MEDS: Sodium Chloride 0.9% 1,000 ML IV SCH (17:05)
[2017-10-23] MEDS: Sodium Chloride 0.9% 10 ML Syringe FLUSH PRN (17:05)
[2017-10-23] MEDS: cefTRIAXone 2 GM Vial IVPUSH SCH (17:10)
[2017-10-23] MEDS: Ketorolac 30 MG/ML SDV IVPUSH SCH ×2 (17:40→23:49)
[2017-10-23] MEDS: HYDROmorphone 2 MG/ML SDV IVPUSH PRN (20:15)
[2017-10-23] MEDS ORDERED: Acetaminophen 325 MG Tab PO PRN (21:55)
[2017-10-24] MEDS: Sodium Chloride 0.9% 1,000 ML IV SCH ×3 (00:14→15:32)
[2017-10-24] MEDS: Sodium Chloride 0.9% 10 ML Syringe FLUSH PRN (00:37)
[2017-10-24] MEDS: cefTRIAXone 2 GM Vial IVPUSH SCH ×2 (05:03→16:58)
[2017-10-24] MEDS: Ketorolac 30 MG/ML SDV IVPUSH SCH ×4 (05:08→22:55)
[2017-10-24] MEDS: HYDROmorphone 2 MG/ML SDV IVPUSH PRN ×2 (05:24→10:20)
--- NOTE | 2017-10-24 08:17 | PCM.SURGPN ---
- General Info Date of Service: 10/24/17 Functional Status: Reports: Pain Controlled, Tolerating Diet - Review of Systems General: Reports: Fever (this is down this am ) Pulmonary: Reports: No Symptoms (not pulling as much on IS but making good effort ) Cardiovascular: Reports: No Symptoms Gastrointestinal: Reports: Abdominal Pain (controlled ) - Patient Data Vitals - Most Recent: Last Vital Signs Temp 96.5 F 10/24/17 07:45 Pulse 80 10/24/17 06:33 Resp 22 H 10/24/17 07:45 BP 123/86 10/24/17 07:45 Pulse Ox 94 L 10/24/17 07:45 Weight - Most Recent: 59.738 kg I&O - Last 24 Hours: Intake & Output 10/23/17 10/24/17 10/24/17 22:59 06:59 14:59 Intake Total 920 1675 Output Total 350 490 Balance 570 1185 Lab Results Last 24 Hrs: Laboratory Results - last 24 hr 10/23/17 10/24/17 10/24/17 Range/Units 16:45 06:15 06:15 WBC 31.1 H* (4.5-12.0) X10-3/uL RBC 2.77 L (4.30-5.75) x10(6)uL Hgb 7.6 L (11.5-15.5) g/dL Hct 23.6 L (30.0-51.3) % MCV 85.3 (80-96) fL MCH 27.5 L (27.7-33.6) pg MCHC 32.2 (32.2-35.4) g/dL RDW 14.7 (11.5-15.5) % Plt Count 1368 H* (125-369) X10(3)uL MPV 7.9 (7.4-10.4) fL Add Manual Diff Yes Neutrophils % (Manual) 75 (46-82) % Lymphocytes % (Manual) 16 (13-37) % Monocytes % (Manual) 8 (4-12) % Eosinophils % (Manual) 1 (0-5) % Nucleated RBCs 1 H (0-0) /100WBC Hypochromasia Few Poikilocytosis Few Anisocytosis Few Target Cells Few Sodium 139 (135-145) mmol/L Potassium 4.1 (3.5-5.3) mmol/L Chloride 104 (100-110) mmol/L Carbon Dioxide 27 (21-32) mmol/L BUN 10 (7-18) mg/dL Creatinine 0.8 (0.70-1.30) mg/dL Est Cr Clr Drug Dosing 102.67 mL/min Estimated GFR (MDRD) > 60 (>60) BUN/Creatinine Ratio 12.5 (9-20) Glucose 102 (80-116) mg/dL Calcium 7.5 L (8.6-10.2) mg/dL Total Bilirubin 0.4 (0.1-1.3) mg/dL AST 18 D (5-25) IU/L ALT 18 D (12-36) U/L Alkaline Phosphatase 114 H (56-112) IU/L Total Protein 6.4 (6.0-8.0) g/dL Albumin 1.7 L* (3.5-5.2) g/dL Globulin 4.7 g/dL Albumin/Globulin Ratio 0.4 Urine Color Yellow (YELLOW) Urine Appearance Clear (CLEAR) Urine pH 9.0 H (5.0-6.5) Ur Specific [place] 1.015 (1.010-1.025) Urine Protein Negative (NEGATIVE) mg/dL Urine Glucose (UA) Normal (NEGATIVE) mg/dL Urine Ketones Negative (NEGATIVE) mg/dL Urine Occult Blood Negative (NEGATIVE) Urine Nitrite Negative (NEGATIVE) Urine Bilirubin Negative (NEGATIVE) Urine Urobilinogen 4 H (NEGATIVE) mg/dL Ur Leukocyte Esterase Negative (NEGATIVE) Urine RBC 0-5 (0) Urine WBC 0-5 (0) Ur Squamous Epith Cells Few H (NS,R,O) Urine Bacteria Few H (NS) Urine Mucus Occasional H (NS) Med Orders - Current: Current Medications Acetaminophen (Tylenol) 650 mg PO Q4H PRN PRN Reason: Fever Last Admin: 10/23/17 23:48 Dose: 650 mg Ceftriaxone Sodium (Rocephin) 2 gm IVPUSH Q12H TWYLA Last Admin: 10/24/17 05:03 Dose: 2 gm Hydromorphone HCl (Dilaudid) 0.5 mg IVPUSH Q2H PRN PRN Reason: Pain (severe 7-10) Last Admin: 10/24/17 05:24 Dose: 0.5 mg Vancomycin HCl 1,000 mg/ (Sodium Chloride) 250 mls @ 250 mls/hr IV Q12H [facility] Last Admin: 10/24/17 05:17 Dose: 250 mls/hr Sodium Chloride (Normal Saline) 1,000 mls @ 150 mls/hr IV ASDIRECTED TWYLA Last Admin: 10/24/17 08:05 Dose: 150 mls/hr Ketorolac Tromethamine (Toradol) 30 mg IVPUSH Q6H [facility] Stop: 10/28/17 17:23 Last Admin: 10/24/17 05:08 Dose: 30 mg Sodium Chloride (Saline Flush) 10 ml FLUSH ASDIRECTED PRN PRN Reason: Keep Vein Open Last Admin: 10/24/17 00:37 Dose: 10 ml - Exam Wound/Incisions: Healing Well, No Drainage General: Alert, No Acute Distress (imporved over yesterday ) Lungs: Clear to Auscultation, Decreased Breath Sounds (lower lung vasques left is much greater ) Cardiovascular: Regular Rate, Regular Rhythm. No: Tachycardia GI/Abdominal Exam: Soft, Abnormal Bowel Sounds (slightly decreased ) Extremities: Normal Inspection Skin: Warm, Dry, Intact - Problem List & Annotations (1) Fever SNOMED Code(s): 423742005 Code(s): R50.9 - FEVER, UNSPECIFIED Status: Acute Current Visit: Yes Qualifiers: Fever type: post-procedural Qualified Code(s): R50.82 - Postprocedural fever (2) S/P splenectomy SNOMED Code(s): 460197251, 785224464, 380024370 Code(s): Z90.81 - ACQUIRED ABSENCE OF SPLEEN Status: Acute Current Visit : Yes - Problem List Review Problem List Initiated/Reviewed/Updated: Yes - My Orders Last 24 Hours: Active Orders 24 hr Category Date Time Status Admission Status [Patient Status] [ADT] Routine ADT 10/23/17 16:37 Active Patient Status [ADT] Routine ADT 10/23/17 17:15 Active Bedrest Bathroom Privileges [RC] ASDIRECTED Care 10/23/17 17:15 Active Cardiac Monitoring [RC] 08,16,00 Care 10/23/17 17:17 Active IS (RT) [RT Incentive Spirometry] [RC] Q2HWA Care 10/23/17 17:22 Active Intake and Output [RC] 06,14,22 Care 10/23/17 17:17 Active Notify Provider Vital Signs [RC] ASDIRECTED Care 10/23/17 17:17 Active Oxygen Therapy [RC] PRN Care 10/23/17 17:15 Active Verify Patient Consent Obtain [RC] ASDIRECTED Care 10/24/17 08:10 Ordered Vital Signs [RC] 02,04,06,08,10,12,14,16,18,20,22,00 Care 10/23/17 17:15 Active Respiratory Care Assess and Treatment [CONS] Routine Cons 10/23/17 17:15 Active Regular Diet [DIET] Diet 10/24/17 Lunch Ordered CULTURE BLOOD [BC] Routine Lab 10/23/17 16:55 Received CULTURE BLOOD [BC] Routine Lab 10/23/17 17:05 Received UA W/MICROSCOPIC [URIN] Routine Lab 10/23/17 16:45 Ordered VANCOMYCIN TROUGH [CHEM] Timed Lab 10/25/17 05:00 Ordered Acetaminophen [Tylenol] Med 10/23/17 21:55 Active 650 mg PO Q4H PRN HYDROmorphone [Dilaudid] Med 10/23/17 17:15 Active 0.5 mg IVPUSH Q2H PRN Ketorolac [Toradol] Med 10/23/17 17:30 Active 30 mg IVPUSH Q6H Sodium Chloride 0.9% [Normal Saline] 1,000 ml Med 10/23/17 17:30 Active IV ASDIRECTED Sodium Chloride 0.9% [Saline Flush] Med 10/23/17 17:32 Active 10 ml FLUSH ASDIRECTED PRN Vancomycin 1,000 mg Med 10/23/17 17:30 Active Sodium Chloride 0.9% [Normal Saline] 250 ml IV Q12H cefTRIAXone [Rocephin] Med 10/23/17 17:00 Active 2 gm IVPUSH Q12H SCD [Sequential Compression Device] [OM.PC] Routine Oth 10/23/17 17:24 Ordered Saline Lock Insert [OM.PC] Routine Oth 10/23/17 17:32 Ordered Resuscitation Status Routine Resus Stat 10/23/17 17:15 Ordered Medication Orders Acetaminophen (Tylenol) 650 mg PO Q4H PRN PRN Reason: Fever Last Admin: 10/23/17 23:48 Dose: 650 mg Ceftriaxone Sodium (Rocephin) 2 gm IVPUSH Q12H [facility] Last Admin: 10/24/17 05:03 Dose: 2 gm Admin: 10/23/17 17:10 Dose: 2 gm Hydromorphone HCl (Dilaudid) 0.5 mg IVPUSH Q2H PRN PRN Reason: Pain (severe 7-10) Last Admin: 10/24/17 05:24 Dose: 0.5 mg Admin: 10/23/17 20:15 Dose: 0.5 mg Vancomycin HCl 1,000 mg/ (Sodium Chloride) 250 mls @ 250 mls/hr IV Q12H [facility] Last Admin: 10/24/17 05:17 Dose: 250 mls/hr Infusion: 10/23/17 18:25 Dose: 250 mls/hr Admin: 10/23/17 17:25 Dose: 250 mls/hr Sodium Chloride (Normal Saline) 1,000 mls @ 150 mls/hr IV ASDIRECTED [facility] Last Admin: 10/24/17 08:05 Dose: 150 mls/hr Infusion: 10/24/17 06:55 Dose: 150 mls/hr Admin: 10/24/17 00:14 Dose: 150 mls/hr Infusion: 10/23/17 23:46 Dose: 150 mls/hr Admin: 10/23/17 17:05 Dose: 150 mls/hr Ketorolac Tromethamine (Toradol) 30 mg IVPUSH Q6H [facility] Stop: 10/28/17 17:23 Last Admin: 10/24/17 05:08 Dose: 30 mg Admin: 10/23/17 23:49 Dose: 30 mg Admin: 10/23/17 17:40 Dose: 30 mg Sodium Chloride (Saline Flush) 10 ml FLUSH ASDIRECTED PRN PRN Reason: Keep Vein Open Last Admin: 10/24/17 00:37 Dose: 10 ml Admin: 10/23/17 17:05 Dose: 10 ml - Assessment Assessment (Free Text/Narrative):: markedly improved exam this morning. HR is down pain is controlled. 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 - Plan Plan (Free Text/Narrative):: going to advance his diet plan thoracentesis on the left for diagnostic and therapeutic purposes procedure and risks explained to include bleeding, infection, pneumothorax. he asks us to proceed.
--- NOTE | 2017-10-24 10:38 | PCM.OPNOTE ---
- General Post-Op/Procedure Note Date of Surgery/Procedure: 10/24/17 Operative Procedure(s): thoracentesis left Findings: 1400 ml of straw colored fluid Pre Op Diagnosis: pleural effusion left Post-Op Diagnosis: Same Anesthesia Technique: Local (1% lido 8 ml) Primary Surgeon: Eugenio Whitt Pathology: cytology sent with fluid analysis Complications: None Condition: Good Free Text/Narrative:: Intake & Output 10/23/17 10/24/17 10/24/17 22:59 06:59 14:59 Intake Total 920 1675 Output Total 350 490 425 Balance 570 1185 -425 see dictation
[2017-10-24] MEDS: Albuterol/Ipratropium 3.0-0.5 MG/3 ML Neb Soln NEB SCH ×3 (11:09→22:55)
--- NOTE | 2017-10-24 11:30 | OR ---
DATE OF OPERATION: 10/24/2017 SURGEON: Eugenio Whitt MD PROCEDURE PERFORMED: Left-sided thoracentesis. PREOPERATIVE DIAGNOSIS: Pleural effusion. POSTOPERATIVE DIAGNOSIS: Pleural effusion. 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 He had developed a mild pleural effusion on the left prior to discharge. However, a followup x-ray yesterday demonstrated it involving more than half of his chest while he was oxygenating well. Due to the fevers, thoracentesis was indicated for both therapeutic as well as diagnostic uses. DESCRIPTION OF OPERATION: After the area was prepped and draped in the usual sterile manner, area of maximal bone mass was identified along the line down from the tip of the scapula. Area was infiltrated with mixture of 1% lidocaine and the chest cavity was entered with a needle and we aspirated a small amount of straw-colored fluid. The stab incision was then made through the skin and the catheter was introduced over the introducer. Specimen for fluid analysis was sent for both chemical cytology and culture. 1400 mL of straw-colored fluid was obtained. Procedure was terminated due to patient's discomfort. The catheter was removed and postprocedure chest x-ray was obtained. /[id number] /CATYL
[2017-10-24] MEDS ORDERED: Aluminum Hydroxide/Magnesium Hydroxide Susp 30 ML Cup PO PRN (14:22)
[2017-10-24] MEDS: Acetaminophen/HYDROcodone 325-5 MG Tab PO PRN ×2 (16:28→20:28)
[2017-10-24] MEDS: Pantoprazole 40 MG Tab.CR PO SCH (20:28)
[2017-10-25] MEDS: Sodium Chloride 0.9% 1,000 ML IV SCH (04:56)
[2017-10-25] MEDS: cefTRIAXone 2 GM Vial IVPUSH SCH ×2 (04:57→17:28)
[2017-10-25] MEDS: Albuterol/Ipratropium 3.0-0.5 MG/3 ML Neb Soln NEB SCH ×4 (04:57→23:18)
[2017-10-25] MEDS: Ketorolac 30 MG/ML SDV IVPUSH SCH ×4 (04:57→23:18)
--- NOTE | 2017-10-25 08:46 | PCM.SURGPN ---
- General Info Date of Service: 10/25/17 Functional Status: Reports: Pain Controlled, Tolerating Diet, Ambulating - Review of Systems Pulmonary: Reports: No Symptoms Cardiovascular: Reports: No Symptoms Gastrointestinal: Reports: No Symptoms - Patient Data Vitals - Most Recent: Last Vital Signs Temp 98.1 F 10/25/17 07:30 Pulse 93 10/25/17 04:00 Resp 20 10/25/17 07:30 BP 132/79 10/25/17 07:30 Pulse Ox 95 10/25/17 07:30 Weight - Most Recent: 59.738 kg I&O - Last 24 Hours: Intake & Output 10/24/17 10/25/17 10/25/17 22:59 06:59 14:59 Intake Total 1072 1103 Output Total 1000 1250 Balance 72 -147 Lab Results Last 24 Hrs: Laboratory Results - last 24 hr 10/24/17 10/24/17 10/24/17 Range/Units 10:15 10:15 10:15 Fluid Glucose Fluid LDH 1377 Fluid Amylase 143 Fluid Triglycerides 36 10/24/17 Range/Units 10:15 Fluid Glucose 92 Fluid LDH Fluid Amylase Fluid Triglycerides [place] Results Last 24 Hrs: Microbiology 10/24/17 10:15 Gram Stain - Final Pleural Fluid - Pleural Cavity, Left Body Fluid Culture - Preliminary No Growth 10/23/17 17:05 Aerobic Blood Culture - Preliminary Blood NO GROWTH AFTER 1 DAY Anaerobic Blood Culture - Preliminary NO GROWTH AFTER 1 DAY 10/23/17 16:55 Aerobic Blood Culture - Preliminary Blood NO GROWTH AFTER 1 DAY Anaerobic Blood Culture - Preliminary NO GROWTH AFTER 1 DAY Med Orders - Current: Current Medications Acetaminophen (Tylenol) 650 mg PO Q4H PRN PRN Reason: Fever Last Admin: 10/23/17 23:48 Dose: 650 mg Hydrocodone Bitart/Acetaminophen ([place] 325-5 Mg) 1 tab PO Q4H PRN PRN Reason: Pain Last Admin: 10/24/17 20:28 Dose: 1 tab Al Hydroxide/Mg Hydroxide (Mag-Al Susp) 30 ml PO Q4H PRN PRN Reason: Heartburn Last Admin: 10/24/17 14:35 Dose: 30 ml Albuterol/Ipratropium (Duoneb 3.0-0.5 Mg/3 Ml) 3 ml NEB Q6H TWYLA Last Admin: 10/25/17 04:57 Dose: 3 ml Ceftriaxone Sodium (Rocephin) 2 gm IVPUSH Q12H [facility] Last Admin: 10/25/17 04:57 Dose: 2 gm Hydromorphone HCl (Dilaudid) 0.5 mg IVPUSH Q2H PRN PRN Reason: Pain (severe 7-10) Last Admin: 10/24/17 10:20 Dose: 0.5 mg Vancomycin HCl 1,000 mg/ (Sodium Chloride) 250 mls @ 250 mls/hr IV Q12H [facility] Last Admin: 10/25/17 04:58 Dose: 250 mls/hr Sodium Chloride (Normal Saline) 1,000 mls @ 75 mls/hr IV ASDIRECTED [facility] Last Admin: 10/25/17 04:56 Dose: 150 mls/hr Ketorolac Tromethamine (Toradol) 30 mg IVPUSH Q6H [facility] Stop: 10/28/17 17:23 Last Admin: 10/25/17 04:57 Dose: 30 mg Pantoprazole Sodium (Protonix) 40 mg PO BEDTIME [facility] Last Admin: 10/24/17 20:28 Dose: 40 mg Sodium Chloride (Saline Flush) 10 ml FLUSH ASDIRECTED PRN PRN Reason: Keep Vein Open Last Admin: 10/24/17 00:37 Dose: 10 ml Vancomycin HCl (Pharmacy To Dose - Vancomycin) 0 dose .XX ASDIRECTED [facility] - Exam Wound/Incisions: Healing Well General: Alert, Oriented Lungs: Clear to Auscultation, Normal Respiratory Effort Cardiovascular: Regular Rate, Regular Rhythm, Tachycardia GI/Abdominal Exam: Normal Bowel Sounds, Soft - Problem List & Annotations (1) Fever SNOMED Code(s): 485907173 Code(s): R50.9 - FEVER, UNSPECIFIED Status: Acute Current Visit: Yes Qualifiers: Fever type: post-procedural Qualified Code(s): R50.82 - Postprocedural fever (2) S/P splenectomy SNOMED Code(s): 281278300, 775615905, 809744485 Code(s): Z90.81 - ACQUIRED ABSENCE OF SPLEEN Status: Acute Current Visit : Yes - Problem List Review Problem List Initiated/Reviewed/Updated: Yes - My Orders Last 24 Hours: Active Orders 24 hr Category Date Time Status RT Aerosol Therapy [RC] ASDIRECTED Care 10/24/17 10:33 Active Regular Diet [DIET] Diet 10/24/17 Lunch Active CXR [Chest 1V Frontal] [CR] Routine Exams 10/24/17 09:57 Taken CBC WITH AUTO DIFF [HEME] AM Lab 10/26/17 05:11 Ordered COMPREHENSIVE METABOLIC PN,CMP [CHEM] AM Lab 10/26/17 05:11 Ordered CULTURE BODY FLUID + SMEAR [RM] Routine Lab 10/24/17 10:15 Results VANCOMYCIN TROUGH [CHEM] Routine Lab 10/25/17 16:30 Ordered Acetaminophen/HYDROcodone [[place] 325-5 MG] Med 10/24/17 14:23 Active 1 tab PO Q4H PRN Albuterol/Ipratropium [DuoNeb 3.0-0.5 MG/3 ML] Med 10/24/17 10:45 Active 3 ml NEB Q6H Alum Hydroxide/Mag Hydroxide [Mag-Al Susp] Med 10/24/17 14:22 Active 30 ml PO Q4H PRN Ferrous Sulfate Med 10/25/17 18:00 Ordered 325 mg PO BIDMEALS Pantoprazole [ProTONIX] Med 10/24/17 21:00 Active 40 mg PO BEDTIME Vancomycin Pharmacy to Dose [Pharmacy to Dose - Med 10/24/17 09:00 Pending Vancomycin] See Dose Instructions .XX ASDIRECTED Convert IV to Saline Lock [OM.PC] Routine Oth 10/25/17 08:41 Ordered Medication Orders Acetaminophen (Tylenol) 650 mg PO Q4H PRN PRN Reason: Fever Last Admin: 10/23/17 23:48 Dose: 650 mg Hydrocodone Bitart/Acetaminophen ([place] 325-5 Mg) 1 tab PO Q4H PRN PRN Reason: Pain Last Admin: 10/24/17 20:28 Dose: 1 tab Admin: 10/24/17 16:28 Dose: 1 tab Al Hydroxide/Mg Hydroxide (Mag-Al Susp) 30 ml PO Q4H PRN PRN Reason: Heartburn Last Admin: 10/24/17 14:35 Dose: 30 ml Albuterol/Ipratropium (Duoneb 3.0-0.5 Mg/3 Ml) 3 ml NEB Q6H TWYLA Last Admin: 10/25/17 04:57 Dose: 3 ml Admin: 10/24/17 22:55 Dose: 3 ml Admin: 10/24/17 16:27 Dose: 3 ml Admin: 10/24/17 11:09 Dose: 3 ml Ceftriaxone Sodium (Rocephin) 2 gm IVPUSH Q12H [facility] Last Admin: 10/25/17 04:57 Dose: 2 gm Admin: 10/24/17 16:58 Dose: 2 gm Admin: 10/24/17 05:03 Dose: 2 gm Admin: 10/23/17 17:10 Dose: 2 gm Hydromorphone HCl (Dilaudid) 0.5 mg IVPUSH Q2H PRN PRN Reason: Pain (severe 7-10) Last Admin: 10/24/17 10:20 Dose: 0.5 mg Admin: 10/24/17 05:24 Dose: 0.5 mg Admin: 10/23/17 20:15 Dose: 0.5 mg Vancomycin HCl 1,000 mg/ (Sodium Chloride) 250 mls @ 250 mls/hr IV Q12H [facility] Last Admin: 10/25/17 04:58 Dose: 250 mls/hr Infusion: 10/24/17 18:13 Dose: 250 mls/hr Admin: 10/24/17 17:13 Dose: 250 mls/hr Infusion: 10/24/17 06:17 Dose: 250 mls/hr Admin: 10/24/17 05:17 Dose: 250 mls/hr Infusion: 10/23/17 18:25 Dose: 250 mls/hr Admin: 10/23/17 17:25 Dose: 250 mls/hr Sodium Chloride (Normal Saline) 1,000 mls @ 75 mls/hr IV ASDIRECTED [facility] Last Admin: 10/25/17 04:56 Dose: 150 mls/hr Infusion: 10/24/17 22:13 Dose: 150 mls/hr Admin: 10/24/17 15:32 Dose: 150 mls/hr Infusion: 10/24/17 14:46 Dose: 150 mls/hr Admin: 10/24/17 08:05 Dose: 150 mls/hr Infusion: 10/24/17 06:55 Dose: 150 mls/hr Admin: 10/24/17 00:14 Dose: 150 mls/hr Infusion: 10/23/17 23:46 Dose: 150 mls/hr Admin: 10/23/17 17:05 Dose: 150 mls/hr Ketorolac Tromethamine (Toradol) 30 mg IVPUSH Q6H [facility] Stop: 10/28/17 17:23 Last Admin: 10/25/17 04:57 Dose: 30 mg Admin: 10/24/17 22:55 Dose: 30 mg Admin: 10/24/17 17:05 Dose: 30 mg Admin: 10/24/17 11:59 Dose: 30 mg Admin: 10/24/17 05:08 Dose: 30 mg Admin: 10/23/17 23:49 Dose: 30 mg Admin: 10/23/17 17:40 Dose: 30 mg Pantoprazole Sodium (Protonix) 40 mg PO BEDTIME TWYLA Last Admin: 10/24/17 20:28 Dose: 40 mg Sodium Chloride (Saline Flush) 10 ml FLUSH ASDIRECTED PRN PRN Reason: Keep Vein Open Last Admin: 10/24/17 00:37 Dose: 10 ml Admin: 10/23/17 17:05 Dose: 10 ml Vancomycin HCl (Pharmacy To Dose - Vancomycin) 0 dose .XX ASDIRECTED TWYLA - Assessment Assessment (Free Text/Narrative):: no fevers last pm. doing well. - Plan Plan (Free Text/Narrative):: continue antibiotics. heplock if start iron
[2017-10-25] MEDS: Acetaminophen/HYDROcodone 325-5 MG Tab PO PRN ×3 (11:04→22:14)
--- NOTE | 2017-10-25 16:21 | PCM.SN ---
- Free Text/Narrative Note: No complaints. good pain control. eating well. lungs cta heart rrr abd soft unchanged exam continue current rx
[2017-10-25] MEDS: Ferrous Sulfate 325 MG Tab PO SCH (18:47)
[2017-10-25] MEDS: Pantoprazole 40 MG Tab.CR PO SCH (20:41)
[2017-10-26] MEDS: Ketorolac 30 MG/ML SDV IVPUSH SCH ×4 (04:59→23:57)
[2017-10-26] MEDS: cefTRIAXone 2 GM Vial IVPUSH SCH ×2 (04:59→17:43)
[2017-10-26] MEDS: Albuterol/Ipratropium 3.0-0.5 MG/3 ML Neb Soln NEB SCH ×4 (04:59→21:44)
--- NOTE | 2017-10-26 07:18 | PCM.SURGPN ---
- General Info Date of Service: 10/26/17 Functional Status: Reports: Pain Controlled, Tolerating Diet, Ambulating, Urinating. Denies: New Symptoms - Review of Systems General: Denies: Fever Cardiovascular: Reports: No Symptoms Gastrointestinal: Reports: No Symptoms - Patient Data Vitals - Most Recent: Last Vital Signs Temp 98.2 F 10/26/17 04:00 Pulse 88 10/26/17 05:11 Resp 20 10/26/17 04:00 BP 101/66 10/26/17 04:00 Pulse Ox 96 10/26/17 04:00 Weight - Most Recent: 59.738 kg I&O - Last 24 Hours: Intake & Output 10/25/17 10/26/17 10/26/17 22:59 06:59 14:59 Intake Total 500 755 Output Total 600 500 Balance -100 255 Lab Results Last 24 Hrs: Laboratory Results - last 24 hr 10/25/17 Range/Units 16:30 Vancomycin Trough 2.1 L (5.0-10.0) ug/mL [place] Results Last 24 Hrs: Microbiology 10/23/17 17:05 Aerobic Blood Culture - Preliminary Blood NO GROWTH AFTER 2 DAYS Anaerobic Blood Culture - Preliminary NO GROWTH AFTER 2 DAYS 10/23/17 16:55 Aerobic Blood Culture - Preliminary Blood NO GROWTH AFTER 2 DAYS Anaerobic Blood Culture - Preliminary NO GROWTH AFTER 2 DAYS 10/24/17 10:15 Gram Stain - Final Pleural Fluid - Pleural Cavity, Left Body Fluid Culture - Preliminary No Growth Med Orders - Current: Current Medications Acetaminophen (Tylenol) 650 mg PO Q4H PRN PRN Reason: Fever Last Admin: 10/23/17 23:48 Dose: 650 mg Hydrocodone Bitart/Acetaminophen ([place] 325-5 Mg) 1 tab PO Q4H PRN PRN Reason: Pain Last Admin: 10/25/17 22:14 Dose: 1 tab Al Hydroxide/Mg Hydroxide (Mag-Al Susp) 30 ml PO Q4H PRN PRN Reason: Heartburn Last Admin: 10/24/17 14:35 Dose: 30 ml Albuterol/Ipratropium (Duoneb 3.0-0.5 Mg/3 Ml) 3 ml NEB Q6H [facility] Last Admin: 10/26/17 04:59 Dose: 3 ml Ceftriaxone Sodium (Rocephin) 2 gm IVPUSH Q12H [facility] Last Admin: 10/26/17 04:59 Dose: 2 gm Ferrous Sulfate (Ferrous Sulfate) 325 mg PO BIDMEALS [facility] Last Admin: 10/25/17 18:47 Dose: 325 mg Hydromorphone HCl (Dilaudid) 0.5 mg IVPUSH Q2H PRN PRN Reason: Pain (severe 7-10) Last Admin: 10/24/17 10:20 Dose: 0.5 mg Sodium Chloride (Normal Saline) 1,000 mls @ 75 mls/hr IV ASDIRECTED [facility] Last Admin: 10/25/17 04:56 Dose: 150 mls/hr Vancomycin HCl 1,000 mg/ (Sodium Chloride) 250 mls @ 250 mls/hr IV Q8H [facility] Last Admin: 10/26/17 01:46 Dose: 250 mls/hr Ketorolac Tromethamine (Toradol) 30 mg IVPUSH Q6H [facility] Stop: 10/28/17 17:23 Last Admin: 10/26/17 04:59 Dose: 30 mg Pantoprazole Sodium (Protonix) 40 mg PO BEDTIME [facility] Last Admin: 10/25/17 20:41 Dose: 40 mg Sodium Chloride (Saline Flush) 10 ml FLUSH ASDIRECTED PRN PRN Reason: Keep Vein Open Last Admin: 10/24/17 00:37 Dose: 10 ml Vancomycin HCl (Pharmacy To Dose - Vancomycin) 0 dose .XX ASDIRECTED [facility] Discontinued Medications Vancomycin HCl 1,000 mg/ (Sodium Chloride) 250 mls @ 250 mls/hr IV Q12H [facility] Last Admin: 10/25/17 04:58 Dose: 250 mls/hr - Exam Wound/Incisions: Healing Well, No Drainage. No: Erythema General: Alert, Cooperative, No Acute Distress Lungs: Clear to Auscultation, Normal Respiratory Effort Cardiovascular: Regular Rate, Regular Rhythm GI/Abdominal Exam: Normal Bowel Sounds, Soft, Non-Tender, No Distention Skin: Warm, Dry, Intact - Problem List & Annotations (1) Fever SNOMED Code(s): 068974747 Code(s): R50.9 - FEVER, UNSPECIFIED Status: Resolved Current Visit: Yes Qualifiers: Fever type: post-procedural Qualified Code(s): R50.82 - Postprocedural fever (2) S/P splenectomy SNOMED Code(s): 465417854, 962594932, 465281471 Code(s): Z90.81 - ACQUIRED ABSENCE OF SPLEEN Status: Acute Current Visit : Yes - Problem List Review Problem List Initiated/Reviewed/Updated: Yes - My Orders Last 24 Hours: Active Orders 24 hr Category Date Time Status CBC WITH AUTO DIFF [HEME] AM Lab 10/26/17 05:11 Ordered COMPREHENSIVE METABOLIC PN,CMP [CHEM] AM Lab 10/26/17 05:11 Ordered Ferrous Sulfate Med 10/25/17 18:00 Active 325 mg PO BIDMEALS Vancomycin 1,000 mg Med 10/25/17 18:00 Active Sodium Chloride 0.9% [Normal Saline] 250 ml IV Q8H Convert IV to Saline Lock [OM.PC] Routine Oth 10/25/17 08:41 Ordered Medication Orders Acetaminophen (Tylenol) 650 mg PO Q4H PRN PRN Reason: Fever Last Admin: 10/23/17 23:48 Dose: 650 mg Hydrocodone Bitart/Acetaminophen ([place] 325-5 Mg) 1 tab PO Q4H PRN PRN Reason: Pain Last Admin: 10/25/17 22:14 Dose: 1 tab Admin: 10/25/17 14:50 Dose: 1 tab Admin: 10/25/17 11:04 Dose: 1 tab Admin: 10/24/17 20:28 Dose: 1 tab Admin: 10/24/17 16:28 Dose: 1 tab Al Hydroxide/Mg Hydroxide (Mag-Al Susp) 30 ml PO Q4H PRN PRN Reason: Heartburn Last Admin: 10/24/17 14:35 Dose: 30 ml Albuterol/Ipratropium (Duoneb 3.0-0.5 Mg/3 Ml) 3 ml NEB Q6H [facility] Last Admin: 10/26/17 04:59 Dose: 3 ml Admin: 10/25/17 23:18 Dose: 3 ml Admin: 10/25/17 17:28 Dose: 3 ml Admin: 10/25/17 10:43 Dose: 3 ml Admin: 10/25/17 04:57 Dose: 3 ml Admin: 10/24/17 22:55 Dose: 3 ml Admin: 10/24/17 16:27 Dose: 3 ml Admin: 10/24/17 11:09 Dose: 3 ml Ceftriaxone Sodium (Rocephin) 2 gm IVPUSH Q12H [facility] Last Admin: 10/26/17 04:59 Dose: 2 gm Admin: 10/25/17 17:28 Dose: 2 gm Admin: 10/25/17 04:57 Dose: 2 gm Admin: 10/24/17 16:58 Dose: 2 gm Admin: 10/24/17 05:03 Dose: 2 gm Admin: 10/23/17 17:10 Dose: 2 gm Ferrous Sulfate (Ferrous Sulfate) 325 mg PO BIDMEALS [facility] Last Admin: 10/25/17 18:47 Dose: 325 mg Hydromorphone HCl (Dilaudid) 0.5 mg IVPUSH Q2H PRN PRN Reason: Pain (severe 7-10) Last Admin: 10/24/17 10:20 Dose: 0.5 mg Admin: 10/24/17 05:24 Dose: 0.5 mg Admin: 10/23/17 20:15 Dose: 0.5 mg Sodium Chloride (Normal Saline) 1,000 mls @ 75 mls/hr IV ASDIRECTED [facility] Last Admin: 10/25/17 04:56 Dose: 150 mls/hr Infusion: 10/24/17 22:13 Dose: 150 mls/hr Admin: 10/24/17 15:32 Dose: 150 mls/hr Infusion: 10/24/17 14:46 Dose: 150 mls/hr Admin: 10/24/17 08:05 Dose: 150 mls/hr Infusion: 10/24/17 06:55 Dose: 150 mls/hr Admin: 10/24/17 00:14 Dose: 150 mls/hr Infusion: 10/23/17 23:46 Dose: 150 mls/hr Admin: 10/23/17 17:05 Dose: 150 mls/hr Vancomycin HCl 1,000 mg/ (Sodium Chloride) 250 mls @ 250 mls/hr IV Q8H [facility] Last Admin: 10/26/17 01:46 Dose: 250 mls/hr Infusion: 10/25/17 19:29 Dose: 250 mls/hr Admin: 10/25/17 18:29 Dose: 250 mls/hr Ketorolac Tromethamine (Toradol) 30 mg IVPUSH Q6H [facility] Stop: 10/28/17 17:23 Last Admin: 10/26/17 04:59 Dose: 30 mg Admin: 10/25/17 23:18 Dose: 30 mg Admin: 10/25/17 17:28 Dose: 30 mg Admin: 10/25/17 11:04 Dose: 30 mg Admin: 10/25/17 04:57 Dose: 30 mg Admin: 10/24/17 22:55 Dose: 30 mg Admin: 10/24/17 17:05 Dose: 30 mg Admin: 10/24/17 11:59 Dose: 30 mg Admin: 10/24/17 05:08 Dose: 30 mg Admin: 10/23/17 23:49 Dose: 30 mg Admin: 10/23/17 17:40 Dose: 30 mg Pantoprazole Sodium (Protonix) 40 mg PO BEDTIME [facility] Last Admin: 10/25/17 20:41 Dose: 40 mg Admin: 10/24/17 20:28 Dose: 40 mg Sodium Chloride (Saline Flush) 10 ml FLUSH ASDIRECTED PRN PRN Reason: Keep Vein Open Last Admin: 10/24/17 00:37 Dose: 10 ml Admin: 10/23/17 17:05 Dose: 10 ml Vancomycin HCl (Pharmacy To Dose - Vancomycin) 0 dose .XX ASDIRECTED [facility] - Assessment Assessment (Free Text/Narrative):: improved exam adjustment made to the Vanc dosing - Plan Plan (Free Text/Narrative):: awaiting lab work.
[2017-10-26] MEDS: Ferrous Sulfate 325 MG Tab PO SCH ×2 (08:20→17:40)
--- NOTE | 2017-10-26 11:23 | CR ---
INDICATION: Post thoracentesis. CHEST: A single AP upright portable view of the chest was obtained 10/24/2017 and compared with 10/17/2017 and 10/14/2017, revealing continued moderate sized pleural effusion on the left with a small pleural effusion on the right and parenchymal changes at both lung bases. Findings may be on the basis of pneumonia and pleuritis Heart appeared somewhat prominent but is emphasized by poor inspiration and AP positioning. A definite pneumothorax is not identified. MTDD
[2017-10-26] MEDS: Sodium Chloride 0.9% 10 ML Syringe FLUSH PRN ×2 (11:25→23:58)
[2017-10-26] MEDS: Acetaminophen/HYDROcodone 325-5 MG Tab PO PRN (14:26)
[2017-10-26] MEDS: Pantoprazole 40 MG Tab.CR PO SCH (21:28)
[2017-10-27] MEDS: Sodium Chloride 0.9% 10 ML Syringe FLUSH PRN ×10 (03:15→20:00)
[2017-10-27] MEDS: Albuterol/Ipratropium 3.0-0.5 MG/3 ML Neb Soln NEB SCH ×4 (04:59→22:14)
[2017-10-27] MEDS: cefTRIAXone 2 GM Vial IVPUSH SCH ×2 (05:00→17:47)
[2017-10-27] MEDS: Ketorolac 30 MG/ML SDV IVPUSH SCH ×3 (05:10→18:51)
[2017-10-27] MEDS: Ferrous Sulfate 325 MG Tab PO SCH ×2 (07:42→19:23)
[2017-10-27] MEDS: Acetaminophen/HYDROcodone 325-5 MG Tab PO PRN ×2 (07:44→22:26)
--- NOTE | 2017-10-27 08:04 | PCM.SURGPN ---
- General Info Date of Service: 10/27/17 Functional Status: Reports: Pain Controlled, Tolerating Diet, Ambulating, Urinating - Review of Systems Pulmonary: Reports: No Symptoms Cardiovascular: Reports: No Symptoms Gastrointestinal: Reports: No Symptoms - Patient Data Vitals - Most Recent: Last Vital Signs Temp 98 F 10/27/17 07:30 Pulse 104 H 10/27/17 07:30 Resp 16 10/27/17 07:30 BP 110/67 10/27/17 07:30 Pulse Ox 97 10/27/17 07:30 Weight - Most Recent: 59.738 kg I&O - Last 24 Hours: Intake & Output 10/26/17 10/27/17 10/27/17 22:59 06:59 14:59 Intake Total 250 250 300 Output Total 400 1150 Balance -150 250 -850 [place] Results Last 24 Hrs: Microbiology 10/23/17 17:05 Aerobic Blood Culture - Preliminary Blood NO GROWTH AFTER 3 DAYS Anaerobic Blood Culture - Preliminary NO GROWTH AFTER 3 DAYS 10/23/17 16:55 Aerobic Blood Culture - Preliminary Blood NO GROWTH AFTER 3 DAYS Anaerobic Blood Culture - Preliminary NO GROWTH AFTER 3 DAYS 10/24/17 10:15 Gram Stain - Final Pleural Fluid - Pleural Cavity, Left Body Fluid Culture - Preliminary NO GROWTH AFTER 2 DAYS Med Orders - Current: Current Medications Acetaminophen (Tylenol) 650 mg PO Q4H PRN PRN Reason: Fever Last Admin: 10/23/17 23:48 Dose: 650 mg Hydrocodone Bitart/Acetaminophen ([place] 325-5 Mg) 1 tab PO Q4H PRN PRN Reason: Pain Last Admin: 10/27/17 07:44 Dose: 1 tab Al Hydroxide/Mg Hydroxide (Mag-Al Susp) 30 ml PO Q4H PRN PRN Reason: Heartburn Last Admin: 10/24/17 14:35 Dose: 30 ml Albuterol/Ipratropium (Duoneb 3.0-0.5 Mg/3 Ml) 3 ml NEB Q6H [facility] Last Admin: 10/27/17 04:59 Dose: 3 ml Ceftriaxone Sodium (Rocephin) 2 gm IVPUSH Q12H [facility] Last Admin: 10/27/17 05:00 Dose: 2 gm Ferrous Sulfate (Ferrous Sulfate) 325 mg PO BIDMEALS [facility] Last Admin: 10/27/17 07:42 Dose: 325 mg Hydromorphone HCl (Dilaudid) 0.5 mg IVPUSH Q2H PRN PRN Reason: Pain (severe 7-10) Last Admin: 10/24/17 10:20 Dose: 0.5 mg Vancomycin HCl 1,000 mg/ (Sodium Chloride) 250 mls @ 250 mls/hr IV Q8H [facility] Last Admin: 10/27/17 02:02 Dose: 250 mls/hr Ketorolac Tromethamine (Toradol) 30 mg IVPUSH Q6H [facility] Stop: 10/28/17 17:23 Last Admin: 10/27/17 05:10 Dose: 30 mg Pantoprazole Sodium (Protonix) 40 mg PO BEDTIME [facility] Last Admin: 10/26/17 21:28 Dose: 40 mg Sodium Chloride (Saline Flush) 10 ml FLUSH ASDIRECTED PRN PRN Reason: Keep Vein Open Last Admin: 10/27/17 05:14 Dose: 10 ml Vancomycin HCl (Pharmacy To Dose - Vancomycin) 0 dose .XX ASDIRECTED [facility] Discontinued Medications Vancomycin HCl 1,000 mg/ (Sodium Chloride) 250 mls @ 250 mls/hr IV Q12H [facility] Last Admin: 10/25/17 04:58 Dose: 250 mls/hr Sodium Chloride (Normal Saline) 1,000 mls @ 75 mls/hr IV ASDIRECTED [facility] Last Admin: 10/25/17 04:56 Dose: 150 mls/hr - Exam Wound/Incisions: Healing Well Lungs: Clear to Auscultation, Normal Respiratory Effort, Decreased Breath Sounds (lower lung vasques ) Cardiovascular: Regular Rate, Regular Rhythm GI/Abdominal Exam: Normal Bowel Sounds, Soft, Non-Tender - Problem List & Annotations (1) Fever SNOMED Code(s): 688074468 Code(s): R50.9 - FEVER, UNSPECIFIED Status: Resolved Current Visit: Yes Qualifiers: Fever type: post-procedural Qualified Code(s): R50.82 - Postprocedural fever (2) S/P splenectomy SNOMED Code(s): 172818550, 968905714, 941260432 Code(s): Z90.81 - ACQUIRED ABSENCE OF SPLEEN Status: Acute Current Visit : Yes - Problem List Review Problem List Initiated/Reviewed/Updated: Yes - My Orders Last 24 Hours: Medication Orders Acetaminophen (Tylenol) 650 mg PO Q4H PRN PRN Reason: Fever Last Admin: 10/23/17 23:48 Dose: 650 mg Hydrocodone Bitart/Acetaminophen ([place] 325-5 Mg) 1 tab PO Q4H PRN PRN Reason: Pain Last Admin: 10/27/17 07:44 Dose: 1 tab Admin: 10/26/17 14:26 Dose: 1 tab Admin: 10/25/17 22:14 Dose: 1 tab Admin: 10/25/17 14:50 Dose: 1 tab Admin: 10/25/17 11:04 Dose: 1 tab Admin: 10/24/17 20:28 Dose: 1 tab Admin: 10/24/17 16:28 Dose: 1 tab Al Hydroxide/Mg Hydroxide (Mag-Al Susp) 30 ml PO Q4H PRN PRN Reason: Heartburn Last Admin: 10/24/17 14:35 Dose: 30 ml Albuterol/Ipratropium (Duoneb 3.0-0.5 Mg/3 Ml) 3 ml NEB Q6H [facility] Last Admin: 10/27/17 04:59 Dose: 3 ml Admin: 10/26/17 21:44 Dose: 3 ml Admin: 10/26/17 17:39 Dose: 3 ml Admin: 10/26/17 10:29 Dose: 3 ml Admin: 10/26/17 04:59 Dose: 3 ml Admin: 10/25/17 23:18 Dose: 3 ml Admin: 10/25/17 17:28 Dose: 3 ml Admin: 10/25/17 10:43 Dose: 3 ml Admin: 10/25/17 04:57 Dose: 3 ml Admin: 10/24/17 22:55 Dose: 3 ml Admin: 10/24/17 16:27 Dose: 3 ml Admin: 10/24/17 11:09 Dose: 3 ml Ceftriaxone Sodium (Rocephin) 2 gm IVPUSH Q12H [facility] Last Admin: 10/27/17 05:00 Dose: 2 gm Admin: 10/26/17 17:43 Dose: 2 gm Admin: 10/26/17 04:59 Dose: 2 gm Admin: 10/25/17 17:28 Dose: 2 gm Admin: 10/25/17 04:57 Dose: 2 gm Admin: 10/24/17 16:58 Dose: 2 gm Admin: 10/24/17 05:03 Dose: 2 gm Admin: 10/23/17 17:10 Dose: 2 gm Ferrous Sulfate (Ferrous Sulfate) 325 mg PO BIDMEALS [facility] Last Admin: 10/27/17 07:42 Dose: 325 mg Admin: 10/26/17 17:40 Dose: 325 mg Admin: 10/26/17 08:20 Dose: 325 mg Admin: 10/25/17 18:47 Dose: 325 mg Hydromorphone HCl (Dilaudid) 0.5 mg IVPUSH Q2H PRN PRN Reason: Pain (severe 7-10) Last Admin: 10/24/17 10:20 Dose: 0.5 mg Admin: 10/24/17 05:24 Dose: 0.5 mg Admin: 10/23/17 20:15 Dose: 0.5 mg Vancomycin HCl 1,000 mg/ (Sodium Chloride) 250 mls @ 250 mls/hr IV Q8H [facility] Last Admin: 10/27/17 02:02 Dose: 250 mls/hr Infusion: 10/26/17 18:53 Dose: 250 mls/hr Admin: 10/26/17 17:53 Dose: 250 mls/hr Infusion: 10/26/17 11:21 Dose: 250 mls/hr Admin: 10/26/17 10:21 Dose: 250 mls/hr Infusion: 10/26/17 02:46 Dose: 250 mls/hr Admin: 10/26/17 01:46 Dose: 250 mls/hr Infusion: 10/25/17 19:29 Dose: 250 mls/hr Admin: 10/25/17 18:29 Dose: 250 mls/hr Ketorolac Tromethamine (Toradol) 30 mg IVPUSH Q6H [facility] Stop: 10/28/17 17:23 Last Admin: 10/27/17 05:10 Dose: 30 mg Admin: 10/26/17 23:57 Dose: 30 mg Admin: 10/26/17 17:39 Dose: 30 mg Admin: 10/26/17 11:25 Dose: 30 mg Admin: 10/26/17 04:59 Dose: 30 mg Admin: 10/25/17 23:18 Dose: 30 mg Admin: 10/25/17 17:28 Dose: 30 mg Admin: 10/25/17 11:04 Dose: 30 mg Admin: 10/25/17 04:57 Dose: 30 mg Admin: 10/24/17 22:55 Dose: 30 mg Admin: 10/24/17 17:05 Dose: 30 mg Admin: 10/24/17 11:59 Dose: 30 mg Admin: 10/24/17 05:08 Dose: 30 mg Admin: 10/23/17 23:49 Dose: 30 mg Admin: 10/23/17 17:40 Dose: 30 mg Pantoprazole Sodium (Protonix) 40 mg PO BEDTIME [facility] Last Admin: 10/26/17 21:28 Dose: 40 mg Admin: 10/25/17 20:41 Dose: 40 mg Admin: 10/24/17 20:28 Dose: 40 mg Sodium Chloride (Saline Flush) 10 ml FLUSH ASDIRECTED PRN PRN Reason: Keep Vein Open Last Admin: 10/27/17 05:14 Dose: 10 ml Admin: 10/27/17 05:09 Dose: 10 ml Admin: 10/27/17 03:15 Dose: 10 ml Admin: 10/26/17 23:58 Dose: 10 ml Admin: 10/26/17 11:25 Dose: 10 ml Admin: 10/24/17 00:37 Dose: 10 ml Admin: 10/23/17 17:05 Dose: 10 ml Vancomycin HCl (Pharmacy To Dose - Vancomycin) 0 dose .XX ASDIRECTED [facility] - Assessment Assessment (Free Text/Narrative):: doing well - Plan Plan (Free Text/Narrative):: lab work in am anticipate discharge Wed
[2017-10-27] MEDS: Pantoprazole 40 MG Tab.CR PO SCH (20:35)
[2017-10-28] MEDS: Ketorolac 30 MG/ML SDV IVPUSH SCH ×3 (00:21→12:43)
[2017-10-28] MEDS: Sodium Chloride 0.9% 10 ML Syringe FLUSH PRN ×3 (00:26→10:21)
[2017-10-28] MEDS: Albuterol/Ipratropium 3.0-0.5 MG/3 ML Neb Soln NEB SCH ×2 (05:15→10:19)
[2017-10-28] MEDS: cefTRIAXone 2 GM Vial IVPUSH SCH (05:22)
[2017-10-28] MEDS: Ferrous Sulfate 325 MG Tab PO SCH (08:17)
--- NOTE | 2017-10-28 10:52 | PCM.SURGPN ---
- General Info Date of Service: 10/28/17 Functional Status: Reports: Pain Controlled, Tolerating Diet, Ambulating, Urinating - Review of Systems Pulmonary: Reports: No Symptoms Cardiovascular: Reports: No Symptoms Gastrointestinal: Reports: No Symptoms - Patient Data Vitals - Most Recent: Last Vital Signs Temp 97.5 F 10/28/17 07:50 Pulse 96 10/28/17 10:31 Resp 18 10/28/17 07:50 BP 116/58 L 10/28/17 07:50 Pulse Ox 98 10/28/17 10:30 Weight - Most Recent: 59.738 kg I&O - Last 24 Hours: Intake & Output 10/27/17 10/28/17 10/28/17 22:59 06:59 14:59 Intake Total 250 250 250 Output Total 980 600 Balance -730 -350 250 Lab Results Last 24 Hrs: Laboratory Results - last 24 hr 10/28/17 10/28/17 Range/Units 06:40 06:40 WBC 20.9 H (4.5-12.0) X10-3/uL RBC 2.80 L (4.30-5.75) x10(6)uL Hgb 7.6 L (11.5-15.5) g/dL Hct 23.7 L (30.0-51.3) % MCV 84.7 (80-96) fL MCH 27.2 L (27.7-33.6) pg MCHC 32.1 L (32.2-35.4) g/dL RDW 15.4 (11.5-15.5) % Plt Count 1390 H* (125-369) X10(3)uL MPV 7.8 (7.4-10.4) fL Add Manual Diff Yes Neutrophils % (Manual) 57 (46-82) % Lymphocytes % (Manual) 27 (13-37) % Monocytes % (Manual) 14 H (4-12) % Eosinophils % (Manual) 2 (0-5) % Hypochromasia Moderate H Poikilocytosis Moderate H Sodium 140 (135-145) mmol/L Potassium 3.6 (3.5-5.3) mmol/L Chloride 104 (100-110) mmol/L Carbon Dioxide 28 (21-32) mmol/L BUN 14 (7-18) mg/dL Creatinine 0.9 (0.70-1.30) mg/dL Est Cr Clr Drug Dosing 91.27 mL/min Estimated GFR (MDRD) > 60 (>60) BUN/Creatinine Ratio 15.6 (9-20) Glucose 110 (80-116) mg/dL Calcium 8.1 L (8.6-10.2) mg/dL Total Bilirubin 0.2 (0.1-1.3) mg/dL AST 28 H (5-25) IU/L ALT 33 (12-36) U/L Alkaline Phosphatase 133 H (56-112) IU/L Total Protein 7.2 (6.0-8.0) g/dL Albumin 2.0 L (3.5-5.2) g/dL Globulin 5.2 g/dL Albumin/Globulin Ratio 0.4 [place] Results Last 24 Hrs: Microbiology 10/23/17 17:05 Aerobic Blood Culture - Preliminary Blood NO GROWTH AFTER 4 DAYS Anaerobic Blood Culture - Preliminary NO GROWTH AFTER 4 DAYS 10/23/17 16:55 Aerobic Blood Culture - Preliminary Blood NO GROWTH AFTER 4 DAYS Anaerobic Blood Culture - Preliminary NO GROWTH AFTER 4 DAYS 10/24/17 10:15 Gram Stain - Final Pleural Fluid - Pleural Cavity, Left Body Fluid Culture - Final NO GROWTH AFTER 3 DAYS Med Orders - Current: Current Medications Acetaminophen (Tylenol) 650 mg PO Q4H PRN PRN Reason: Fever Last Admin: 10/23/17 23:48 Dose: 650 mg Hydrocodone Bitart/Acetaminophen ([place] 325-5 Mg) 1 tab PO Q4H PRN PRN Reason: Pain Last Admin: 10/27/17 22:26 Dose: 1 tab Al Hydroxide/Mg Hydroxide (Mag-Al Susp) 30 ml PO Q4H PRN PRN Reason: Heartburn Last Admin: 10/24/17 14:35 Dose: 30 ml Albuterol/Ipratropium (Duoneb 3.0-0.5 Mg/3 Ml) 3 ml NEB Q6H [facility] Last Admin: 10/28/17 10:19 Dose: 3 ml Ceftriaxone Sodium (Rocephin) 2 gm IVPUSH Q12H [facility] Last Admin: 10/28/17 05:22 Dose: 2 gm Ferrous Sulfate (Ferrous Sulfate) 325 mg PO BIDMEALS [facility] Last Admin: 10/28/17 08:17 Dose: 325 mg Hydromorphone HCl (Dilaudid) 0.5 mg IVPUSH Q2H PRN PRN Reason: Pain (severe 7-10) Last Admin: 10/24/17 10:20 Dose: 0.5 mg Vancomycin HCl 1,000 mg/ (Sodium Chloride) 250 mls @ 250 mls/hr IV Q8H [facility] Last Admin: 10/28/17 10:21 Dose: 250 mls/hr Ketorolac Tromethamine (Toradol) 30 mg IVPUSH Q6H [facility] Stop: 10/28/17 17:23 Last Admin: 10/28/17 05:22 Dose: 30 mg Pantoprazole Sodium (Protonix) 40 mg PO BEDTIME [facility] Last Admin: 10/27/17 20:35 Dose: 40 mg Sodium Chloride (Saline Flush) 10 ml FLUSH ASDIRECTED PRN PRN Reason: Keep Vein Open Last Admin: 10/28/17 10:21 Dose: 10 ml Vancomycin HCl (Pharmacy To Dose - Vancomycin) 0 dose .XX ASDIRECTED [facility] Discontinued Medications Vancomycin HCl 1,000 mg/ (Sodium Chloride) 250 mls @ 250 mls/hr IV Q12H [facility] Last Admin: 10/25/17 04:58 Dose: 250 mls/hr Sodium Chloride (Normal Saline) 1,000 mls @ 75 mls/hr IV ASDIRECTED [facility] Last Admin: 10/25/17 04:56 Dose: 150 mls/hr - Exam Wound/Incisions: Healing Well General: Alert Lungs: Clear to Auscultation, Normal Respiratory Effort Cardiovascular: Regular Rate, Regular Rhythm GI/Abdominal Exam: Normal Bowel Sounds, Soft, Non-Tender - Problem List & Annotations (1) Fever SNOMED Code(s): 727351831 Code(s): R50.9 - FEVER, UNSPECIFIED Status: Resolved Current Visit: Yes Qualifiers: Fever type: post-procedural Qualified Code(s): R50.82 - Postprocedural fever (2) S/P splenectomy SNOMED Code(s): 127500932, 014713363, 933525978 Code(s): Z90.81 - ACQUIRED ABSENCE OF SPLEEN Status: Acute Current Visit : Yes - Problem List Review Problem List Initiated/Reviewed/Updated: Yes - My Orders Last 24 Hours: Active Orders 24 hr Category Date Time Status Ready for Discharge [RC] PER UNIT ROUTINE Care 10/28/17 10:46 Ordered Medication Orders Acetaminophen (Tylenol) 650 mg PO Q4H PRN PRN Reason: Fever Last Admin: 10/23/17 23:48 Dose: 650 mg Hydrocodone Bitart/Acetaminophen ([place] 325-5 Mg) 1 tab PO Q4H PRN PRN Reason: Pain Last Admin: 10/27/17 22:26 Dose: 1 tab Admin: 10/27/17 07:44 Dose: 1 tab Admin: 10/26/17 14:26 Dose: 1 tab Admin: 10/25/17 22:14 Dose: 1 tab Admin: 10/25/17 14:50 Dose: 1 tab Admin: 10/25/17 11:04 Dose: 1 tab Admin: 10/24/17 20:28 Dose: 1 tab Admin: 10/24/17 16:28 Dose: 1 tab Al Hydroxide/Mg Hydroxide (Mag-Al Susp) 30 ml PO Q4H PRN PRN Reason: Heartburn Last Admin: 10/24/17 14:35 Dose: 30 ml Albuterol/Ipratropium (Duoneb 3.0-0.5 Mg/3 Ml) 3 ml NEB Q6H [facility] Last Admin: 10/28/17 10:19 Dose: 3 ml Admin: 10/28/17 05:15 Dose: 3 ml Admin: 10/27/17 22:14 Dose: 3 ml Admin: 10/27/17 17:30 Dose: 3 ml Admin: 10/27/17 10:37 Dose: 3 ml Admin: 10/27/17 04:59 Dose: 3 ml Admin: 10/26/17 21:44 Dose: 3 ml Admin: 10/26/17 17:39 Dose: 3 ml Admin: 10/26/17 10:29 Dose: 3 ml Admin: 10/26/17 04:59 Dose: 3 ml Admin: 10/25/17 23:18 Dose: 3 ml Admin: 10/25/17 17:28 Dose: 3 ml Admin: 10/25/17 10:43 Dose: 3 ml Admin: 10/25/17 04:57 Dose: 3 ml Admin: 10/24/17 22:55 Dose: 3 ml Admin: 10/24/17 16:27 Dose: 3 ml Admin: 10/24/17 11:09 Dose: 3 ml Ceftriaxone Sodium (Rocephin) 2 gm IVPUSH Q12H [facility] Last Admin: 10/28/17 05:22 Dose: 2 gm Admin: 10/27/17 17:47 Dose: 2 gm Admin: 10/27/17 05:00 Dose: 2 gm Admin: 10/26/17 17:43 Dose: 2 gm Admin: 10/26/17 04:59 Dose: 2 gm Admin: 10/25/17 17:28 Dose: 2 gm Admin: 10/25/17 04:57 Dose: 2 gm Admin: 10/24/17 16:58 Dose: 2 gm Admin: 10/24/17 05:03 Dose: 2 gm Admin: 10/23/17 17:10 Dose: 2 gm Ferrous Sulfate (Ferrous Sulfate) 325 mg PO BIDMEALS [facility] Last Admin: 10/28/17 08:17 Dose: 325 mg Admin: 10/27/17 19:23 Dose: 325 mg Admin: 10/27/17 07:42 Dose: 325 mg Admin: 10/26/17 17:40 Dose: 325 mg Admin: 10/26/17 08:20 Dose: 325 mg Admin: 10/25/17 18:47 Dose: 325 mg Hydromorphone HCl (Dilaudid) 0.5 mg IVPUSH Q2H PRN PRN Reason: Pain (severe 7-10) Last Admin: 10/24/17 10:20 Dose: 0.5 mg Admin: 10/24/17 05:24 Dose: 0.5 mg Admin: 10/23/17 20:15 Dose: 0.5 mg Vancomycin HCl 1,000 mg/ (Sodium Chloride) 250 mls @ 250 mls/hr IV Q8H [facility] Last Admin: 10/28/17 10:21 Dose: 250 mls/hr Infusion: 10/28/17 03:32 Dose: 250 mls/hr Admin: 10/28/17 02:32 Dose: 250 mls/hr Infusion: 10/27/17 19:54 Dose: 250 mls/hr Admin: 10/27/17 18:54 Dose: 250 mls/hr Infusion: 10/27/17 10:32 Dose: 250 mls/hr Admin: 10/27/17 09:32 Dose: 250 mls/hr Infusion: 10/27/17 03:02 Dose: 250 mls/hr Admin: 10/27/17 02:02 Dose: 250 mls/hr Infusion: 10/26/17 18:53 Dose: 250 mls/hr Admin: 10/26/17 17:53 Dose: 250 mls/hr Infusion: 10/26/17 11:21 Dose: 250 mls/hr Admin: 10/26/17 10:21 Dose: 250 mls/hr Infusion: 10/26/17 02:46 Dose: 250 mls/hr Admin: 10/26/17 01:46 Dose: 250 mls/hr Infusion: 10/25/17 19:29 Dose: 250 mls/hr Admin: 10/25/17 18:29 Dose: 250 mls/hr Ketorolac Tromethamine (Toradol) 30 mg IVPUSH Q6H [facility] Stop: 10/28/17 17:23 Last Admin: 10/28/17 05:22 Dose: 30 mg Admin: 10/28/17 00:21 Dose: 30 mg Admin: 10/27/17 18:51 Dose: 30 mg Admin: 10/27/17 12:48 Dose: 30 mg Admin: 10/27/17 05:10 Dose: 30 mg Admin: 10/26/17 23:57 Dose: 30 mg Admin: 10/26/17 17:39 Dose: 30 mg Admin: 10/26/17 11:25 Dose: 30 mg Admin: 10/26/17 04:59 Dose: 30 mg Admin: 10/25/17 23:18 Dose: 30 mg Admin: 10/25/17 17:28 Dose: 30 mg Admin: 10/25/17 11:04 Dose: 30 mg Admin: 10/25/17 04:57 Dose: 30 mg Admin: 10/24/17 22:55 Dose: 30 mg Admin: 10/24/17 17:05 Dose: 30 mg Admin: 10/24/17 11:59 Dose: 30 mg Admin: 10/24/17 05:08 Dose: 30 mg Admin: 10/23/17 23:49 Dose: 30 mg Admin: 10/23/17 17:40 Dose: 30 mg Pantoprazole Sodium (Protonix) 40 mg PO BEDTIME [facility] Last Admin: 10/27/17 20:35 Dose: 40 mg Admin: 10/26/17 21:28 Dose: 40 mg Admin: 10/25/17 20:41 Dose: 40 mg Admin: 10/24/17 20:28 Dose: 40 mg Sodium Chloride (Saline Flush) 10 ml FLUSH ASDIRECTED PRN PRN Reason: Keep Vein Open Last Admin: 10/28/17 10:21 Dose: 10 ml Admin: 10/28/17 02:33 Dose: 10 ml Admin: 10/28/17 00:26 Dose: 10 ml Admin: 10/27/17 20:00 Dose: 10 ml Admin: 10/27/17 18:53 Dose: 10 ml Admin: 10/27/17 17:52 Dose: 10 ml Admin: 10/27/17 17:27 Dose: 10 ml Admin: 10/27/17 12:48 Dose: 10 ml Admin: 10/27/17 10:40 Dose: 10 ml Admin: 10/27/17 09:35 Dose: 10 ml Admin: 10/27/17 05:14 Dose: 10 ml Admin: 10/27/17 05:09 Dose: 10 ml Admin: 10/27/17 03:15 Dose: 10 ml Admin: 10/26/17 23:58 Dose: 10 ml Admin: 10/26/17 11:25 Dose: 10 ml Admin: 10/24/17 00:37 Dose: 10 ml Admin: 10/23/17 17:05 Dose: 10 ml Vancomycin HCl (Pharmacy To Dose - Vancomycin) 0 dose .XX ASDIRECTED [facility] - Assessment Assessment (Free Text/Narrative):: ready for discharge - Plan Plan (Free Text/Narrative):: d/c to home
--- NOTE | 2017-10-28 11:53 | PCM.DCSUM1 ---
Discharge Summary - Discharge Data Discharge Date: 10/28/17 Discharge Disposition: Home, Self-Care 01 Condition: Good - Discharge Diagnosis/Problem(s) (1) Fever SNOMED Code(s): 500795672 ICD Code: R50.9 - FEVER, UNSPECIFIED Status: Resolved Current Visit: Yes Qualifiers: Fever type: post-procedural Qualified Code(s): R50.82 - Postprocedural fever (2) S/P splenectomy SNOMED Code(s): 146794389, 355630612, 857230343 ICD Code: Z90.81 - ACQUIRED ABSENCE OF SPLEEN Status: Acute Current Visit : Yes - Patient Summary/Data Operative Procedure(s) Performed: thoracentesis left Consults: Consultations 10/23/17 17:15 Respiratory Care Assess and Treatment [CONS] Routine Comment: Physician Instructions: Hospital Course: Pt was admitted and started on IV Vancomycin and Rocephin after obtaining blood cultures. He continued to have fevers that night and on the following morning underwent a thoracentesis to of the left side. Fluid analysis did not reveal any unexpected results as far as chemistry was concerned. Culture was negative as well. Clinical condition improved, and reported feeling better the next day. Fevers also resolved. Appetite improved as well as he po intake also improved. While blood cultures were negative, we elected to continue a full 5 day course of antibiotics due to his asplenic state. On the date of discharge he was afebrile, and pain free. WBC was elevated but this along with his thrombocytopenia appear to be secondary to his splenectomy. He is discharged to home. I will have him follow up on Thursday. Plan on vaccinating him then. - Patient Instructions Diet: Usual Diet as Tolerated, No Alcoholic Beverages Activity: Rest and Relax Today Driving: Do Not Drive (may resume on Thursday. ) Showering/Bathing: May Shower Wound/Incision, Other: no further care required. Notify Provider of: Fever, Increased Pain - Discharge Plan *PRESCRIPTION DRUG MONITORING PROGRAM REVIEWED*: Yes *COPY OF PRESCRIPTION DRUG MONITORING REPORT IN PATIENT WIN: Yes Prescriptions/Med Rec: Acetaminophen/HYDROcodone [[place] 325-5 MG] 1 - 2 tab PO Q6H PRN #20 tab PRN Reason: Pain Home Medications: Home Meds Docusate Sodium [Colace] 100 mg PO BID #20 capsule 10/18/17 [Rx] Ferrous Gluconate [Iron] 236 mg PO BID #60 tablet 10/18/17 [Rx] Ibuprofen 600 mg PO Q6H #28 tablet 10/18/17 [Rx] Acetaminophen/HYDROcodone [[place] 325-5 MG] 1 - 2 tab PO Q6H PRN #20 tab [Rx] Referrals: Eugenio Whitt MD [Physician] - 10/30/17 - Discharge Summary/Plan Comment DC Time >30 min.: No - Patient Data Vitals - Most Recent: Last Vital Signs Temp 97.5 F 10/28/17 07:50 Pulse 96 10/28/17 10:31 Resp 18 10/28/17 07:50 BP 116/58 L 10/28/17 07:50 Pulse Ox 98 10/28/17 10:30 Weight - Most Recent: 59.738 kg I&O - Last 24 hours: Intake & Output 10/27/17 10/28/17 10/28/17 22:59 06:59 14:59 Intake Total 250 250 250 Output Total 980 600 Balance -730 -350 250 Lab Results - Last 24 hrs: Laboratory Results - last 24 hr 10/28/17 10/28/17 Range/Units 06:40 06:40 WBC 20.9 H (4.5-12.0) X10-3/uL RBC 2.80 L (4.30-5.75) x10(6)uL Hgb 7.6 L (11.5-15.5) g/dL Hct 23.7 L (30.0-51.3) % MCV 84.7 (80-96) fL MCH 27.2 L (27.7-33.6) pg MCHC 32.1 L (32.2-35.4) g/dL RDW 15.4 (11.5-15.5) % Plt Count 1390 H* (125-369) X10(3)uL MPV 7.8 (7.4-10.4) fL Add Manual Diff Yes Neutrophils % (Manual) 57 (46-82) % Lymphocytes % (Manual) 27 (13-37) % Monocytes % (Manual) 14 H (4-12) % Eosinophils % (Manual) 2 (0-5) % Hypochromasia Moderate H Poikilocytosis Moderate H Sodium 140 (135-145) mmol/L Potassium 3.6 (3.5-5.3) mmol/L Chloride 104 (100-110) mmol/L Carbon Dioxide 28 (21-32) mmol/L BUN 14 (7-18) mg/dL Creatinine 0.9 (0.70-1.30) mg/dL Est Cr Clr Drug Dosing 91.27 mL/min Estimated GFR (MDRD) > 60 (>60) BUN/Creatinine Ratio 15.6 (9-20) Glucose 110 (80-116) mg/dL Calcium 8.1 L (8.6-10.2) mg/dL Total Bilirubin 0.2 (0.1-1.3) mg/dL AST 28 H (5-25) IU/L ALT 33 (12-36) U/L Alkaline Phosphatase 133 H (56-112) IU/L Total Protein 7.2 (6.0-8.0) g/dL Albumin 2.0 L (3.5-5.2) g/dL Globulin 5.2 g/dL Albumin/Globulin Ratio 0.4 [place] Results - Last 24 hrs: Microbiology 10/23/17 17:05 Aerobic Blood Culture - Preliminary Blood NO GROWTH AFTER 4 DAYS Anaerobic Blood Culture - Preliminary NO GROWTH AFTER 4 DAYS 10/23/17 16:55 Aerobic Blood Culture - Preliminary Blood NO GROWTH AFTER 4 DAYS Anaerobic Blood Culture - Preliminary NO GROWTH AFTER 4 DAYS 10/24/17 10:15 Gram Stain - Final Pleural Fluid - Pleural Cavity, Left Body Fluid Culture - Final NO GROWTH AFTER 3 DAYS Med Orders - Current: Current Medications Acetaminophen (Tylenol) 650 mg PO Q4H PRN PRN Reason: Fever Last Admin: 10/23/17 23:48 Dose: 650 mg Hydrocodone Bitart/Acetaminophen ([place] 325-5 Mg) 1 tab PO Q4H PRN PRN Reason: Pain Last Admin: 10/27/17 22:26 Dose: 1 tab Al Hydroxide/Mg Hydroxide (Mag-Al Susp) 30 ml PO Q4H PRN PRN Reason: Heartburn Last Admin: 10/24/17 14:35 Dose: 30 ml Albuterol/Ipratropium (Duoneb 3.0-0.5 Mg/3 Ml) 3 ml NEB Q6H [facility] Last Admin: 10/28/17 10:19 Dose: 3 ml Ceftriaxone Sodium (Rocephin) 2 gm IVPUSH Q12H [facility] Last Admin: 10/28/17 05:22 Dose: 2 gm Ferrous Sulfate (Ferrous Sulfate) 325 mg PO BIDMEALS [facility] Last Admin: 10/28/17 08:17 Dose: 325 mg Hydromorphone HCl (Dilaudid) 0.5 mg IVPUSH Q2H PRN PRN Reason: Pain (severe 7-10) Last Admin: 10/24/17 10:20 Dose: 0.5 mg Vancomycin HCl 1,000 mg/ (Sodium Chloride) 250 mls @ 250 mls/hr IV Q8H [facility] Last Admin: 10/28/17 10:21 Dose: 250 mls/hr Ketorolac Tromethamine (Toradol) 30 mg IVPUSH Q6H [facility] Stop: 10/28/17 17:23 Last Admin: 10/28/17 05:22 Dose: 30 mg Pantoprazole Sodium (Protonix) 40 mg PO BEDTIME [facility] Last Admin: 10/27/17 20:35 Dose: 40 mg Sodium Chloride (Saline Flush) 10 ml FLUSH ASDIRECTED PRN PRN Reason: Keep Vein Open Last Admin: 10/28/17 10:21 Dose: 10 ml Vancomycin HCl (Pharmacy To Dose - Vancomycin) 0 dose .XX ASDIRECTED [facility] Discontinued Medications Vancomycin HCl 1,000 mg/ (Sodium Chloride) 250 mls @ 250 mls/hr IV Q12H [facility] Last Admin: 10/25/17 04:58 Dose: 250 mls/hr Sodium Chloride (Normal Saline) 1,000 mls @ 75 mls/hr IV ASDIRECTED [facility] Last Admin: 10/25/17 04:56 Dose: 150 mls/hr
== END 2017-10-28 12:10 | disposition home or self-care (01) | DRG 722 ==
LOC: FB.ICU 16:37 → FB.MS 10-24 09:30
PROVIDERS: ADMIT Surgery; ATTEND Surgery
PROC: 0W9B3ZX Drainage of Left Pleural Cavity, Percutaneous Approach, Diagnostic (ICD-10-PCS; principal; 2017-10-24)
DX: R50.82 Postprocedural fever (principal); D69.6 Thrombocytopenia, unspecified; J90 Pleural effusion, not elsewhere classified; B18.2 Chronic viral hepatitis C; Z90.81 Acquired absence of spleen; Z87.828 Personal history of other (healed) physical injury and trauma; Z90.5 Acquired absence of kidney
CPT/HCPCS: 36415; 71045; 80053; 80202; 81001; 82150; 82945; 83615; 84478; 85025; 87040; 87070; 87205; 88112; 88305; 94150; 94640; A9270-GY; J0696; J1170; J1885; J3370; J7030; J7050; J7620

== ENCOUNTER 2019-01-12 16:04 | Emergency (ER) | payer BC, MEDICAID ==
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
== END 2019-01-12 17:23 | disposition home or self-care (01) ==
LOC: FB.ED 16:04
DX: J40 Bronchitis, not specified as acute or chronic (principal); F17.210 Nicotine dependence, cigarettes, uncomplicated
CPT/HCPCS: 87804; 87804-59; 99283

== ENCOUNTER 2019-01-13 02:01 | Emergency (ER) | payer MEDICAID ==
[2019-01-13] MEDS ORDERED: Sodium Chloride 0.9% 1,000 ML IV ONE (02:12)
[2019-01-13] MEDS ORDERED: Amoxicillin/Clavulanate K 875-125 MG Tab PO ONE (02:12)
[2019-01-13] MEDS ORDERED: Sodium Chloride 0.9% 10 ML Syringe FLUSH PRN (02:18)
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
== END 2019-01-13 04:30 | disposition home or self-care (01) ==
LOC: FB.ED 02:01
DX: J40 Bronchitis, not specified as acute or chronic (principal); F17.210 Nicotine dependence, cigarettes, uncomplicated
CPT/HCPCS: 96360; 99283; A9270; J7030